=== PATIENT | female | born 2000 | race Caucasian/White ===

== ENCOUNTER 2020-03-13 00:48 | Emergency (ER) | payer SELFPAY ==
[2020-03-13 00:56] VITALS: BP 145/100; PULSE 129; RESP 18; TEMP 37.1; O2SAT 98; BMI 20.7
[2020-03-13 01:33] LABS: Basophils % 0.4 %; Eosinophils # 0.2 10^3/uL (0.0-0.8); Eosinophils % 2.5 %; Hematocrit 45.4 % (37.0-47.0); Hemoglobin 15.1 g/dL (11.5-15.3); Lymphocytes # 2.5 10^3/uL (1.5-6.5); Lymphocytes % 34.7 %; Mean Corpuscular HGB Conc 33.3 g/dL (30.0-36.0); Mean Corpuscular Hemoglobin 29.4 pg (28.0-34.0); Mean Corpuscular Volume 88.5 fL (81-99); Mean Platelet Volume 10.2 fL (7.4-10.4); Monocytes # 0.5 10^3/uL (0.2-0.9); Monocytes % 6.5 %; Neutrophils # 3.9 10^3/uL (1.8-8.0); Neutrophils % 55.8 %; Nucleated Red Blood Cells % 0 %; Platelet Count 340 10^3/cmm (130-400); Red Blood Count 5.13 10^6/uL (4.1-5.3); Red Cell Distribution Width 12.2 % (12.1-15.1); White Blood Count 7.1 10^3/uL (4.5-13.0)
[2020-03-13 01:33] LABS: Amorphous Sediment Urine 2+; Bacteria Urine 1+; Bilirubin Urine 1+ (NEGATIVE); Blood Urine Neg (Negative); Glucose Urine UA Norm (Normal); Ketones Urine Negative (Negative); Leukocyte Esterase Urine Negative (Negative); Nitrate Urine Negative (Negative); Protein Urine Neg (Negative); RBC Urine 0-4 /hpf (0-2); Squamous Epithelial Cell Urine 0-4 (0-5); Urine Appearance Cloudy (CLEAR); Urine Color Yellow (Yellow); Urobilinogen Urine 1 mg/dL (Negative); WBC Urine 0-4 /hpf (0-5); pH Urine 7 (5-7)
--- NOTE | 2020-03-13 01:39 | US_ITS ---
WS: [id number] ABDOMINAL ULTRASOUND LIMITED REASON FOR VISIT: RUQ pain TECHNIQUE: Grayscale and Doppler ultrasound examination of the abdomen. FINDINGS: Pancreas: Appears to be within normal limits. Abdominal aorta and IVC: Normal findings. Liver: Liver measures 13.9 cm in length. Normal hepatopedal flow. Gallbladder: Gallbladder wall thickness measures 0.2 mm. No stones. Right kidney: Right kidney measures 12.3 cm x 5.5 cm x 4.4 cm. No hydronephrosis or stones. US/US gall bladder [id number] IMPRESSION: Normal gallbladder and right upper quadrant ultrasound.
--- NOTE | 2020-03-13 01:40 | W.ED.ABDPA2 ---
HPI - Abdominal Pain General: Chief Complaint: Abdominal Pain Stated Complaint: ABD PAIN Time Seen by Provider: 03/13/20 01:14 Source: patient Mode of arrival: ambulatory Limitations: no limitations History of Present Illness: HPI narrative: Patient is a 19-year-old female who presents to ED today with complaints of chronic intermittent upper abdominal pains over the past year or so. Patient tells me her symptoms are progressively worsening. Patient tells me every time after eating she gets pain in her upper abdomen specifically her right upper quadrant. She often has extreme nausea and vomiting after eating. She tells me almost immediately after eating she has to run to the bathroom because she often has diarrhea. She is complaining of green-colored stools. Patient is tearful stating that it is getting harder and harder to hold anything down. Patient has been evaluated previously by her PCP as well as Dr. Juarez. She has received an EGD as well as a colonoscopy both returning completely normal. She tells me she has tried a gluten-free diet without success. Patient has an appointment with Dr. Juarez on Thursday for further evaluation. MD elicited complaint: abdominal pain Onset (ago): year(s) Pain Consistency: intermittent Location: RUQ Severity: moderate Radiation: none Migration to: no migration Exacerbating factors: eating Relieving factors: bowel movement and vomiting Associated Symptoms: Reports diarrhea, nausea, vomiting and other (reports green stools); Denies bloating, chills, coffee ground emesis, GI cramping, dysuria, fever(s), hematochezia, hematemesis, fecal incontinence, melena and syncope Review of Systems Const: Denies: fever, chills, body aches, fatigue or malaise ENMT: Denies: throat pain, enlarged tonsils or painful swallowing Card: Denies: chest pain, palpitations, irregular heart rhythm, edema, lightheadedness, syncope, pre-syncope, shortness of breath on exertion or shortness of breath when lying down Resp: Denies: shortness of breath, productive cough, non-productive cough, pain on inspiration, coughing up blood or chest congestion GI: Reports: abdominal pain, nausea, vomiting, diarrhea and other (reports green stools); Denies: vomiting blood, coffee grounds in vomit, difficulty swallowing, bloating, cramping, fecal incontinence, blood in stool, black tarry stool, white/light colored stool or fatty stool : Denies: flank pain, difficulty urinating, painful urination, urinary frequency or urinary urgency Musc: Denies: neck pain or back pain Skin/Breast: Denies: rash Neuro: Denies: headache, numbness in extremities, weakness in extremities or changes in sensation PFS ED PFSH: Social History (Updated 02/17/20 @ 13:26 by Debi Nguyen LPN) Smoking and tobacco status: never smoked Female Reproductive History: : 0 Physical Exam Const: COMMON NORMALS: no apparent distress, average body habitus, oriented x3, no limitations, healthy appearing, alert and well nourished Resp: COMMON NORMALS: normal respiratory effort and clear to auscultation bilaterally AUSCULTATION: clear to auscultation bilaterally Cardio: COMMON NORMALS: regular rate and regular rhythm RATE: regular rate RHYTHM: regular rhythm GI: COMMON NORMALS: normal to inspection, nondistended, normoactive bowel sounds, soft to palpation, no hepatosplenomegaly and no masses PALPATION: Yes soft, Yes tender Details: RUQ (no guarding) and Yes no hepatosplenomegaly : COMMON NORMALS: Yes no CVA tenderness BLADDER/KIDNEY EXAM: Yes no CVA tenderness Back/Pelvis: COMMON NORMALS: no CVA tenderness Neuro: COMMON NORMALS: oriented x3 SENSORIUM/ORIENTATION: Yes alert Skin: COMMON NORMALS: no rashes or lesions noted GENERAL SKIN EXAM: no rashes or lesions noted Course Vital Signs: Vital signs: Vital Signs Temperature 98.8 F 03/13/20 00:56 Pulse Rate 91 03/13/20 02:10 Respiratory Rate 18 03/13/20 02:10 Blood Pressure 107/63 03/13/20 02:10 Pulse Oximetry 100 03/13/20 02:10 MDM - Abdominal Pain Lab Data: Labs: Lab Results 03/13/20 03/13/20 03/13/20 Range/Units 01:12 01:12 01:12 WBC 7.1 (4.5-13.0) 10^3/ uL RBC 5.13 (4.1-5.3) 10^6/u L Hgb 15.1 (11.5-15.3) g/dL Hct 45.4 (37.0-47.0) % MCV 88.5 (81-99) fL MCH 29.4 (28.0-34.0) pg MCHC 33.3 (30.0-36.0) g/dL RDW 12.2 (12.1-15.1) % Plt Count 340 (130-400) 10^3/c mm MPV 10.2 (7.4-10.4) fL Neut % (Auto) 55.8 % Lymph % (Auto) 34.7 % [place] % (Auto) 6.5 % Eos % (Auto) 2.5 % Baso % (Auto) 0.4 % Neut # (Auto) 3.9 (1.8-8.0) 10^3/u L Lymph # (Auto) 2.5 (1.5-6.5) 10^3/u L [place] # (Auto) 0.5 (0.2-0.9) 10^3/u L Eos # (Auto) 0.2 (0.0-0.8) 10^3/u L Baso # (Auto) 0.0 (0.0-0.1) 10^3/u L Nucleated RBC % (a uto) 0 % Nucleated RBCs # 0.0 /100WBC Sodium 140 (136-145) mmol/L Potassium 3.5 (3.5-5.1) mmol/L Chloride 103 (98-107) mmol/L Carbon Dioxide 27 (22-29) mmol/L Anion Gap 13.5 (5-19) BUN 7 (6-20) mg/dL Creatinine 0.7 (0.5-0.9) mg/dL GFR Calculation 106.7 (90-130) mL/min Glucose 108 (65-115) mg/dL Calculated Osmolal ity 286 (285-295) mOsm/k g Calcium 10.1 (8.5-10.5) mg/dL Total Bilirubin 0.3 (0.15-1.2) mg/dL AST 16 (0-32) U/L ALT 10 (0-33) U/L Alkaline Phosphata se 64 (35-105) IU/L Total Protein 8.5 (6.6-8.7) g/dL Albumin 4.8 (3.5-5.2) g/dL Globulin 3.7 (1.3-4.6) g/dL Lipase 38 (13-60) U/L HCG, Qual Negative (Negative) Urine Color (Yellow) Urine Appearance (CLEAR) Urine pH (5-7) Ur Specific Gravit y (1.005-1.030) Urine Protein (Negative) Urine Glucose (UA) (Normal) Urine Ketones (Negative) Urine Blood (Negative) Urine Nitrate (Negative) Urine Bilirubin (NEGATIVE) Urine Urobilinogen (Negative) mg/dL Ur Leukocyte Ella ase (Negative) Urine RBC (0-2) /hpf Urine WBC (0-5) /hpf Ur Squamous Epith Cells (0-5) Amorphous Sediment Urine Bacteria (NONE) 03/13/20 Range/Units 01:20 WBC (4.5-13.0) 10^3/ uL RBC (4.1-5.3) 10^6/u L Hgb (11.5-15.3) g/dL Hct (37.0-47.0) % MCV (81-99) fL MCH (28.0-34.0) pg MCHC (30.0-36.0) g/dL RDW (12.1-15.1) % Plt Count (130-400) 10^3/c mm MPV (7.4-10.4) fL Neut % (Auto) % Lymph % (Auto) % [place] % (Auto) % Eos % (Auto) % Baso % (Auto) % Neut # (Auto) (1.8-8.0) 10^3/u L Lymph # (Auto) (1.5-6.5) 10^3/u L [place] # (Auto) (0.2-0.9) 10^3/u L Eos # (Auto) (0.0-0.8) 10^3/u L Baso # (Auto) (0.0-0.1) 10^3/u L Nucleated RBC % (a uto) % Nucleated RBCs # /100WBC Sodium (136-145) mmol/L Potassium (3.5-5.1) mmol/L Chloride (98-107) mmol/L Carbon Dioxide (22-29) mmol/L Anion Gap (5-19) BUN (6-20) mg/dL Creatinine (0.5-0.9) mg/dL GFR Calculation (90-130) mL/min Glucose (65-115) mg/dL Calculated Osmolal ity (285-295) mOsm/k g Calcium (8.5-10.5) mg/dL Total Bilirubin (0.15-1.2) mg/dL AST (0-32) U/L ALT (0-33) U/L Alkaline Phosphata se (35-105) IU/L Total Protein (6.6-8.7) g/dL Albumin (3.5-5.2) g/dL Globulin (1.3-4.6) g/dL Lipase (13-60) U/L HCG, Qual (Negative) Urine Color Yellow (Yellow) Urine Appearance Cloudy (CLEAR) Urine pH 7 (5-7) Ur Specific Gravit y 1.020 (1.005-1.030) Urine Protein Neg (Negative) Urine Glucose (UA) Norm (Normal) Urine Ketones Negative (Negative) Urine Blood Neg (Negative) Urine Nitrate Negative (Negative) Urine Bilirubin 1+ H (NEGATIVE) Urine Urobilinogen 1 H (Negative) mg/dL Ur Leukocyte Ella ase Negative (Negative) Urine RBC 0-4 H (0-2) /hpf Urine WBC 0-4 H (0-5) /hpf Ur Squamous Epith Cells 0-4 H (0-5) Amorphous Sediment 2+ Urine Bacteria 1+ H (NONE) Imaging Data ^: US gallbladder: 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 Juarez on Thursday as scheduled. May return to ED for worsening pain or any other concerns you may have. Coding Level of Care Code ED Fire Warden for Chg Fwd Exam Detailed
[2020-03-13 01:45] LABS: Alanine Aminotransferase 10 U/L (0-33); Albumin Level 4.8 g/dL (3.5-5.2); Alkaline Phosphatase 64 IU/L (35-105); Anion Gap 13.5 (5-19); Aspartate Amino Transferase 16 U/L (0-32); Blood Urea Nitrogen 7 mg/dL (6-20); Calcium 10.1 mg/dL (8.5-10.5); Carbon Dioxide 27 mmol/L (22-29); Chloride 103 mmol/L (98-107); Globulin 3.7 g/dL (1.3-4.6); Glomerular Filtration Rate 106.7 mL/min (90-130); Glucose 108 mg/dL (65-115); Lipase 38 U/L (13-60); Osmolality Calculated 286 mOsm/kg (285-295); Potassium 3.5 mmol/L (3.5-5.1); Sodium 140 mmol/L (136-145); Total Bilirubin 0.3 mg/dL (0.15-1.2); Total Protein 8.5 g/dL (6.6-8.7)
[2020-03-13 02:10] VITALS: BP 107/63; PULSE 91; RESP 18; O2SAT 100
[2020-03-13] MEDS: promethazine 25 mg/mL SDV 1 mL IM (02:11)
[2020-03-13 02:17] LABS: HCG, Serum Qual Negative (Negative)
[2020-03-13 03:08] VITALS: BP 107/61; PULSE 63; RESP 18; O2SAT 98
== END 2020-03-13 03:09 | disposition home or self-care (01) ==
PROVIDERS: Emergency Medicine; Emergency Provider Physician Assistant; Family Provider Internal Medicine; PCP Internal Medicine
DX: R10.9 Unspecified abdominal pain (principal)
CPT/HCPCS: 12345; 76705; 80053; 81001; 83690; 84703; 85025; 96372; 99282; 99283; J2550

== ENCOUNTER 2020-03-19 08:26 | Day surgery (SDC) | payer SELFPAY ==
[2020-03-16 18:13] VITALS: BMI 21.5
[2020-03-19] VITALS (11 sets, daily range): BP systolic 113–136; BP diastolic 68–80; PULSE 61–90; RESP 15–26; TEMP 36.1–37.1; O2SAT 94–100
--- NOTE | 2020-03-19 08:15 | W.PM.OPSUD ---
Surgery/Procedure H&P Update DATE OF PROCEDURE: March 19, 2020 DATE H&P PERFORMED: 03/16/20 H&P UPDATE INFORMATION: I have reviewed H&P completed within last 30 days, I have examined patient prior to procedure and No changes to prior documentation PLANNED PROCEDURE: Operation Date: 03/19/20 09:55 Proposed Procedures p Laparoscopic Cholecystectomy 49945 [id number] R10.11(Not Applicable) - Kimo Juarez MD s EGD(Not Applicable) - Kimo Juarez MD
[2020-03-19 08:48] LABS: OR HCG Qualitative Urine Negative (Negative)
[2020-03-19] MEDS: sodium chloride 0.9% 1,000 ML 30 ML IV (08:50)
--- NOTE | 2020-03-19 08:52 | ANES.PREANE2 ---
Pre-Anesthetic Assessment Pre-Anesthetic Assessment: Height/Weight: Height 1.75 m Weight 66.224 kg Temp Pulse Resp BP Pulse Ox 97.0 F L 90 16 129/76 97 03/19/20 08:39 03/19/20 08:39 03/19/20 08:39 03/19/20 08:39 03/19/20 08:39 Preop Diagnosis: Chronic cholecystitis Proposed Procedure: Operation Date: 03/19/20 09:55 Proposed Procedures p Laparoscopic Cholecystectomy 29988 [id number] R10.11(Not Applicable) - Kimo Juarez MD s EGD(Not Applicable) - Kimo Juarez MD Familial anesthetic complications: PONV - adding scopolamine patch Was Beta Hi taken within 24 hours: N/A Last intake: Intake Last Liquid Date 03/18/20 Last Liquid Time 22:00 Last Solid Date 03/18/20 Last Solid Time 21:30 Social: Social History: No alcohol and No tobacco Comment: Vapes Exam: Pre-Anes Outpt Exam: alert, oriented x 3, clear to auscultation bilaterally and regular rate & rhythm Airway: Cervical ROM: WNL MP: 1 Dentition: Full Pulmonary: Pulmonary: None reported CV/HEM: CV/HEM: None reported : : None reported Hepatic: Hepatic: None reported GI: GI: None reported Metabolic: Metabolic: None reported Musc/skel: Musc/skel: None reported Neuropsych: Neuropsych: None reported Anesthetic Plan: ASA status: 1 Anesthesia: General Risk of > 500 ml blood loss (7ml/kg in children): No Meds/Allergies Current Medications: Current Medications Generic Name Dose Route Start Last Admin Trade Name Freq PRN Reason Stop Dose Admin Sodium Chloride 1,000 mls @ 30 ml s/hr 03/19/20 07:30 03/19/20 08:50 Sodium Chloride 0.9% IV 03/20/20 07:29 30 mls/hr .Q24H ERNESTO Administration PFSH Anesthesia PFSH: Surgical History (Updated 03/19/20 @ 07:00 by Kimo Juarez MD) History of colonoscopy (~2018) History of esophagogastroduodenoscopy (EGD) (~2018) Social History Smoking and tobacco status: never smoked Data Anesthesia Other Labs: Laboratory Results - last 48 hr 03/19/20 08:46 Urine HCG, Qual Negative Cardiac Studies: No Data to Display
[2020-03-19] MEDS: scopolamine 1.5 Patch 1 PATCH TRANSDERMA (08:53)
--- NOTE | 2020-03-19 10:31 | PM.OP ---
Operative Report Date of procedure: March 19, 2020 Pre-op Diagnosis: Chronic cholecystitis Post-op Findings: Normal EGD Chronic cholecystitis Procedure Done: Laparoscopic cholecystectomy Pathology: Gallbladder Surgeon: Kimo Juarez Anesthesia: General Estimated blood loss (mL): 5 Condition: stable Disposition: PACU Procedure: The patient was taken to the operating room and was intubated under general anesthesia. A bite-block was placed and the gastroscope was introduced and advanced up to the second portion of the duodenum and slowly withdrawn. The first and second was in the duodenum was normal. There is mild nonerosive gastritis noted in the antrum, the fundus, body and pylorus of the stomach were normal. Z line at 40 cm. No abnormalities noted on retroflexion. The rest of the esophagus was normal and the gastroscope was withdrawn. After the antibiotic had been administered, the abdomen was prepped and draped in a sterile manner. Using a #15 blade, a 1 centimeter infraumbilical curvilinear incision was made and using an open Tasneem technique the peritoneal cavity was entered. A 10 millimeter port was placed and 15 millimeters of pneumoperitoneum was created. A 10 millimeter, 30 degrees scope was then introduced. Three 5 millimeter ports were placed in the epigastric, midclavicular and the anterior axillary line two fingerbreadths below the costal margin on the right side under the direct visualization. Ratcheted forceps were introduced into the lateral most port and was used to retract the fundus of the gallbladder cephalad and using forceps the infundibulum of the gallbladder was retracted laterally. Using L-hook cautery the peritoneum overlying the Calot's triangle was opened medially and laterally until the cystic duct and the cystic artery were skeletonized. Dissection was carried along the body of the gallbladder and after ensuring critical view of safety, 4 clips applied on the cystic duct and 3 clips applied on the cystic artery and cut leaving, 3 clips on the remaining portion of the duct and 2 clips on the remaining portion of the artery. The rest of the gallbladder was dissected off the liver using L-hook cautery. There was no bleeding or bile leaking noted from the gallbladder fossa and the clips appeared to be in place. An EndoCatch bag was introduced to remove the gallbladder. All the ports were removed under direct visualization and there was no bleeding noted from the port sites. The fascia of the umbilicus was closed using [id number] Vicryl sutures and the subcutaneous tissue was approximated using 3-0 Vicryl sutures. The skin at all four ports were closed using 4-0 Monocryl and Dermabond. A total of 10 millimeters of 0.5% Marcaine was infiltrated around the port sites. The patient was stable throughout the procedure.
--- NOTE | 2020-03-19 10:38 | SUR.PHASEI ---
1037 PATIENT TO PACU AT THIS TIME. RR EVEN AND UNLABORED. 4 INCISIONS TO ABDOMEN, CDI. PATIENT RESPONSIVE TO VERBAL STIMULI.
[2020-03-19] MEDS: fentaNYL 50 mcg/mL INJ 2mL IVP (10:43)
[2020-03-19] MEDS: metoclopramide 5 mg/mL SDV 2 mL 10 MG IVP (10:46)
[2020-03-19] MEDS: midazolam 1 mg/mL INJ 2 mL 2 MG IVP (11:04)
--- NOTE | 2020-03-19 11:08 | SUR.PHASEI ---
1101 PATIENT TO OPS AT THIS TIME FROM PACU. C/O ANXIETY. VERSED GIVEN IN OPS. PATIENT PAIN 7/10, WANTING PAIN PILL IN OPS. NAUSEA IMPROVED. TOLERATING ICE CHIPS.
[2020-03-19] MEDS: HYDROcodone-acetaminophen 5-325 mg Tablet 1 TAB PO (11:45)
== END 2020-03-19 12:29 | disposition home or self-care (01) ==
PROVIDERS: Family Provider Internal Medicine; PCP Internal Medicine; Visit Provider Surgery
PROC: 0FT44ZZ Resection of Gallbladder, Percutaneous Endoscopic Approach (ICD-10-PCS; CPT 47562; principal; 2020-03-19 09:45)
PROC: 0DJ08ZZ Inspection of Upper Intestinal Tract, Via Natural or Artificial Opening Endoscopic (ICD-10-PCS; CPT 43235; 2020-03-19 09:45)
DX: K81.1 Chronic cholecystitis (principal)
CPT/HCPCS: 47562; 12345; 43235; 84703; 88304; J0690; J2001; J2250; J2405; J2704; J2710; J2765; J3010; J3490; J7030

== ENCOUNTER 2020-05-23 18:34 | Emergency (ER) | payer SELFPAY ==
[2020-05-23 18:45] VITALS: BP 139/69; PULSE 93; RESP 18; TEMP 37.7; O2SAT 94; BMI 20.7
[2020-05-23 19:58] LABS: Basophils % 0.5 %; Eosinophils # 0.3 10^3/uL (0.0-0.8); Eosinophils % 3.9 %; Hematocrit 39.7 % (37.0-47.0); Hemoglobin 13.3 g/dL (11.5-15.3); Lymphocytes # 2.8 10^3/uL (1.5-6.5); Lymphocytes % 34.5 %; Mean Corpuscular HGB Conc 33.5 g/dL (30.0-36.0); Mean Corpuscular Hemoglobin 30.2 pg (28.0-34.0); Monocytes # 0.6 10^3/uL (0.2-0.9); Monocytes % 7.4 %; Neutrophils # 4.26 10^3/uL (1.8-8.0); Neutrophils % 53.4 %; Nucleated Red Blood Cells % 0 %; Platelet Count 295 10^3/cmm (130-400); Red Blood Count 4.41 10^6/uL (4.1-5.3); Red Cell Distribution Width 12.2 % (12.1-15.1)
[2020-05-23 20:17] LABS: Alanine Aminotransferase 11 U/L (0-33); Albumin Level 4.6 g/dL (3.5-5.2); Alkaline Phosphatase 68 IU/L (35-105); Aspartate Amino Transferase 19 U/L (0-32); Blood Urea Nitrogen 8 mg/dL (6-20); Calcium 9.6 mg/dL (8.5-10.5); Carbon Dioxide 27 mmol/L (22-29); Chloride 102 mmol/L (98-107); Globulin 2.7 g/dL (1.3-4.6); Glomerular Filtration Rate 127.5 mL/min (90-130); Glucose 102 mg/dL (65-115); Osmolality Calculated 282 mOsm/kg (285-295); Sodium 138 mmol/L (136-145); Total Bilirubin 0.3 mg/dL (0.15-1.2); Total Protein 7.3 g/dL (6.6-8.7)
--- NOTE | 2020-05-23 21:25 | W.ED.GENADLT ---
HPI - General Adult General: Chief complaint: General Medical Stated complaint: bloody stool Time Seen by Provider: 05/23/20 21:12 History of Present Illness: HPI narrative: Patient is a 19-year-old female comes to the ED with blood in stool. Patient has chronic history of red blood in the stool and has had upper GI scope and colonoscopy performed approximately a year ago due to same complaint and results showed no acute findings. Patient recently had her gallbladder removed on March 19. patient says symptoms of blood in stool started today. She is also having some mild lower abdominal pain and lumbar back pain that started 2 days ago. Denies any nausea/vomiting, vaginal discharge, vaginal bleeding, genital lesions, dysuria, hematuria, diarrhea or constipation. Associated symptoms: Deny chest pain, dyspnea, headache(s), nausea, rash, palpitations or vomiting Review of Systems Const: Denies: fever(s), chills or fatigue Eyes: Denies: change in vision or eye discomfort ENMT: Denies: throat pain, odynophagia, nasal discharge or nasal congestion Card: Denies: chest pain, palpitations, edema, swelling of feet/ankles, dyspnea on exertion or orthopnea Resp: Denies: dyspnea, productive cough or non-productive cough GI: Reports: hematochezia; Denies: abdominal pain, nausea, vomiting, diarrhea or constipation : Denies: flank pain, dysuria or hematuria Musc: Reports: back pain (mild muscular lumbar back pain-pt is a [employer]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[employer]NA[employer] 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.); Denies: neck pain or extremity swelling Skin/Breast: Denies: rash or new lesions Neuro: Denies: headache(s), numbness in extremities or weakness in extremities PFS ED PFSH: Surgical History History of colonoscopy (~2019) History of esophagogastroduodenoscopy (EGD) (03/19/20) Status post laparoscopic cholecystectomy (03/19/20) Family History Denies family history of Anesthesia complication Bleeding disorder Social History Smoking and tobacco status: never smoked Alcohol intake: never History of recent travel: No Physical Exam Const: COMMON NORMALS: no acute distress, patient oriented x3 and alert GENERAL APPEARANCE: cooperative and comfortable HENMT: COMMON NORMALS: normocephalic HEAD & SCALP: normocephalic MOUTH: Normal oral and palatal mucosa present THROAT: posterior oropharynx normal and uvula midline Eye: COMMON NORMALS: Equal, round and reactive pupils present PUPIL: Yes Equal, round and reactive pupils present Neck/C-Spine: COMMON NORMALS: supple GENERAL: Yes normal visual inspection Resp: COMMON NORMALS: normal respiratory effort, No retractions, No use of accessory muscles and clear to auscultation bilaterally AUSCULTATION: clear to auscultation bilaterally Cardio: COMMON NORMALS: regular rate, regular rhythm, S1 normal heart sound present, S2 normal heart sound present, No gallops present (Cardio), No clicks present (Cardio), No murmurs present (Cardio) and Peripheral pulses 2+ throughout RATE: regular rate RHYTHM: regular rhythm HEART SOUNDS: S1 normal heart sound present and S2 normal heart sound present PERIPHERAL PULSES: Peripheral pulses 2+ throughout GI: COMMON NORMALS: Normal to inspection, nondistended, normoactive bowel sounds present, Soft to palpation, non-tender and no masses PALPATION: Yes Soft to palpation RECTAL EXAM: visual inspection normal, normal sphincter tone, No External hemorrhoid(s) present, No Internal hemorrhoid(s) present and heme negative stool : COMMON NORMALS: Yes no CVA tenderness BLADDER/KIDNEY EXAM: Yes no CVA tenderness Back/Pelvis: COMMON NORMALS: no CVA tenderness LUMBAR SPINE/LOWER BACK: Yes paraspinal muscle tenderness Lumbar paraspinal muscle tenderness: bilateral Extremity: COMMON NORMALS: normal to inspection and no pedal edema Neuro: COMMON NORMALS: patient oriented x3 and moves all extremities SENSORIUM/ORIENTATION: Yes alert Skin: COMMON NORMALS: no rashes or lesions noted GENERAL SKIN EXAM: no rashes or lesions noted and dry skin Procedures Stool Hemoccult Procedural Steps Taken: stool placed in appropriate test area, developer placed on stool and control areas and controls appropriately positive and negative Hemoccult result: negative Additional Comments: Digital rectal exam was performed. Course Vital Signs: Vital signs: Vital Signs Temperature 99.9 F H 05/23/20 18:45 Pulse Rate 84 05/23/20 22:07 Respiratory Rate 16 05/23/20 22:07 Blood Pressure 142/93 05/23/20 22:07 Pulse Oximetry 98 07/15/20 22:07 MDM - General Adult MDM Narrative: Medical decision making narrative: Patient is a 19-year-old female comes to the ED with small amount of red blood in stool that started today. Patient has a chronic history of red blood in stool she describes that it has been going on for years now and it comes and goes. She has had an upper GI and a colonoscopy performed in the last year and no acute findings were seen. Patient appears healthy and well and in no signs of distress or pain. Abdominal exam was unremarkable and patient had no tenderness. Digital rectal exam was performed with a female nurse in the room and no hemorrhoids were palpated. No visible blood seen and stool Hemoccult test negative. CBC (hemoglobin 13.3) and CMP were unremarkable. hCG was negative. CT of the abdomen was performed and showed no acute findings. Patient was diagnosed with hematochezia and discharged and told to follow-up with PCP in 7 to 10 days. Patient to return to ED for reevaluation if symptoms worsen. Patient understood and agreed with plan. Lab Data: Attestation: I reviewed the patient's lab results. Labs: Lab Results 05/23/20 05/23/20 05/23/20 Range/Units 19:40 19:40 19:40 WBC 8.0 (4.5-13.0) 10^3/ uL RBC 4.41 (4.1-5.3) 10^6/u L Hgb 13.3 (11.5-15.3) g/dL Hct 39.7 (37.0-47.0) % MCV 90.0 (81-99) fL MCH 30.2 (28.0-34.0) pg MCHC 33.5 (30.0-36.0) g/dL RDW 12.2 (12.1-15.1) % Plt Count 295 (130-400) 10^3/c mm MPV 10.0 (7.4-10.4) fL Neut % (Auto) 53.4 % Lymph % (Auto) 34.5 % [place] % (Auto) 7.4 % Eos % (Auto) 3.9 % Baso % (Auto) 0.5 % Neut # (Auto) 4.26 (1.8-8.0) 10^3/u L Lymph # (Auto) 2.8 (1.5-6.5) 10^3/u L [place] # (Auto) 0.6 (0.2-0.9) 10^3/u L Eos # (Auto) 0.3 (0.0-0.8) 10^3/u L Baso # (Auto) 0.0 (0.0-0.1) 10^3/u L Nucleated RBC % (a uto) 0 % Nucleated RBCs # 0.0 /100WBC Sodium 138 (136-145) mmol/L Potassium 4.0 (3.5-5.1) mmol/L Chloride 102 (98-107) mmol/L Carbon Dioxide 27 (22-29) mmol/L Anion Gap 13.0 (5-19) BUN 8 (6-20) mg/dL Creatinine 0.6 (0.5-0.9) mg/dL GFR Calculation 127.5 (90-130) mL/min Glucose 102 (65-115) mg/dL Calculated Osmolal ity 282 L (285-295) mOsm/k g Calcium 9.6 (8.5-10.5) mg/dL Total Bilirubin 0.3 (0.15-1.2) mg/dL AST 19 (0-32) U/L ALT 11 (0-33) U/L Alkaline Phosphata se 68 (35-105) IU/L Total Protein 7.3 (6.6-8.7) g/dL Albumin 4.6 (3.5-5.2) g/dL Globulin 2.7 (1.3-4.6) g/dL HCG, Qual Negative (Negative) Imaging Data^: CT Abd/Pel: Attestation: I personally reviewed and interpreted this imaging study as follows: Radiologist's impression: [address] [address] [address] Scan Report Signed with Addenda Patient: Gay Del Cid Unit #: [id number] : 2000 Age/Sex: 19 / F ADM Date: 05/23/20 Loc: ER Room/Bed: Attending Dr: Ordering Provider/Ordering MD: Uri Parnell Date of Service: 05/23/20 Procedure(s): CT abdomen pelvis w con* [id number] Accession Number(s): [id number] Report Number: [id number]/CT abdomen pelvis w con* [id number] THIS REPORT CONTAINS FINDINGS THAT MAY BE CRITICAL TO PATIENT CARE. The findings were verbally communicated via telephone conference with Uri Parnell at 12:55 AM CDT on 05/24/2020. The findings were acknowledged and understood. Radiation Dose CTDIVOL = (mGy): DLP = 662.64 (mGy-cm) Addendum Dictated By: Sung Castellano Addendum Signed By: Sung Castellano Signed Date/Time: 05/24/20 005 6 Addendum Cosigned By: PROCEDURE INFORMATION: Exam: CT Abdomen And Pelvis With Contrast Exam date and time: 05/23/2020 11:09 PM Age: 19 years old Clinical indication: Abdominal pain; Generalized; Prior surgery; Surgery type: Cholecystectomy; Additional info: Lower abdominal pain with red blood in stool TECHNIQUE: Imaging protocol: Computed tomography of the abdomen and pelvis with intravenous contrast. Radiation optimization: All CT scans at this facility use at least one of these dose optimization techniques: automated exposure control; mA and/or kV adjustment per patient size (includes targeted exams where dose is matched to clinical indication); or iterative reconstruction. Contrast material: [id number]; Contrast volume: 95 ml; Contrast route: INTRAVENOUS (IV); COMPARISON: US gall bladder [id number] 03/13/2020 2:24 AM RADIATION DOSE METRICS: Total DLP (mGy-cm): 662.64 FINDINGS: Lungs: Limited assessment lung bases without visible evidence of active cardiopulmonary process. Liver: Unremarkable. No mass. Gallbladder and bile ducts: Status post cholecystectomy. No visible intra or extrahepatic biliary ectasia. Pancreas: Normal. No ductal dilation. Spleen: Normal. No splenomegaly. Adrenals: Normal. No mass. Kidneys and ureters: Normal. No hydronephrosis. Stomach and bowel: Nonobstructive bowel pattern. No visible adynamic or reactive ileus. No sentinel clot or other definitive evidence of active GI hemorrhage. Appendix: The appendix is visualized and is noninflamed. Intraperitoneal space: Unremarkable. No free air. No significant fluid collection. Vasculature: Unremarkable. No abdominal aortic aneurysm. Lymph nodes: Unremarkable. No enlarged lymph nodes. Bladder: Unremarkable as visualized. Reproductive: Suspected diaphragm within the vaginal vault. Bones/joints: Unremarkable. No visible active osseous pathology. Soft tissues: Unremarkable. CT/CT abdomen pelvis w con* [id number] IMPRESSION: No visible evidence of active or acute abdominal or pelvic pathologic process. Radiation Dose CTDIVOL = (mGy): DLP = 662.64 (mGy-cm) Dictated By: Sung Castellano Signed By: Sung Castellano Signed Date/Time: 05/24/2055 DD/ Discharge Plan Discharge Patient Disposition: Home, Self-Care Clinical Impression: Hematochezia Condition: Stable Prescriptions: No Action etonogestrel-ethinyl estradiol [NuvaRing] 0.12-0.015 mg/24 hr ring 1 vag ring VAGINAL Q21D RF: 0 cetirizine 10 mg Tablet 10 mg PO DAILY PRN (Reason: allergies) RF: 0 Tylenol Extra Strength 500 mg Tablet 1,000 mg PO PRN PRN (Reason: Pain) RF: 0 sertraline 50 mg tablet 50 mg PO DAILY RF: 0 Discharge Orders: Discharge Order (Routine); Ordered 05/24/20 Ordered By: Uri Parnell Referrals: Jeannie Valladares MD [Primary Care Provider] - Discharge Diet: Regular Discharge Activity: Resume usual activity Activity Restrictions/Additional Instructions: Follow-up with medical provider as directed. Continue taking all home meds as previously prescribed. Return to the ER or your medical provider if condition worsens. Please read and understand discharge instructions. If any questions, please ask. Coding Level of Care Code [facility] for [facility] Fwd Exam Comprehensive
[2020-05-23 22:07] VITALS: BP 142/93; PULSE 84; RESP 16; O2SAT 98
--- NOTE | 2020-05-23 22:56 | CTR_ITS ---
PROCEDURE INFORMATION: Exam: CT Abdomen And Pelvis With Contrast Exam date and time: 05/23/2020 11:09 PM Age: 19 years old Clinical indication: Abdominal pain; Generalized; Prior surgery; Surgery type: Cholecystectomy; Additional info: Lower abdominal pain with red blood in stool TECHNIQUE: Imaging protocol: Computed tomography of the abdomen and pelvis with intravenous contrast. Radiation optimization: All CT scans at this facility use at least one of these dose optimization techniques: automated exposure control; mA and/or kV adjustment per patient size (includes targeted exams where dose is matched to clinical indication); or iterative reconstruction. Contrast material: [id number]; Contrast volume: 95 ml; Contrast route: INTRAVENOUS (IV); COMPARISON: US gall bladder [id number] 03/13/2020 2:24 AM RADIATION DOSE METRICS: Total DLP (mGy-cm): 662.64 FINDINGS: Lungs: Limited assessment lung bases without visible evidence of active cardiopulmonary process. Liver: Unremarkable. No mass. Gallbladder and bile ducts: Status post cholecystectomy. No visible intra or extrahepatic biliary ectasia. Pancreas: Normal. No ductal dilation. Spleen: Normal. No splenomegaly. Adrenals: Normal. No mass. Kidneys and ureters: Normal. No hydronephrosis. Stomach and bowel: Nonobstructive bowel pattern. No visible adynamic or reactive ileus. No sentinel clot or other definitive evidence of active GI hemorrhage. Appendix: The appendix is visualized and is noninflamed. Intraperitoneal space: Unremarkable. No free air. No significant fluid collection. Vasculature: Unremarkable. No abdominal aortic aneurysm. Lymph nodes: Unremarkable. No enlarged lymph nodes. Bladder: Unremarkable as visualized. Reproductive: Suspected diaphragm within the vaginal vault. Bones/joints: Unremarkable. No visible active osseous pathology. Soft tissues: Unremarkable. CT/CT abdomen pelvis w con* [id number] IMPRESSION: No visible evidence of active or acute abdominal or pelvic pathologic process. Radiation Dose CTDIVOL = (mGy): DLP = 662.64 (mGy-cm)
--- NOTE | 2020-05-23 23:14 | PC.NURSE ---
report given to rick syed assumed care.
[2020-05-23 23:40] LABS: HCG, Serum Qual Negative (Negative)
[2020-05-23] MEDS: sodium chloride 0.9% 1,000 ML 999 ML IV (23:59)
[2020-05-24] MEDS: iohexol 300 mg/mL 100 mL Btl IV (00:08)
[2020-05-24 01:08] VITALS: BP 112/63; PULSE 83; RESP 16; TEMP 36.7; O2SAT 98
== END 2020-05-24 01:13 | disposition home or self-care (01) ==
PROVIDERS: Emergency Medicine; Emergency Provider Physician Assistant; PCP Internal Medicine
DX: K92.1 Melena (principal)
CPT/HCPCS: 12345; 36415; 74177; 80053; 82272; 84703; 85025; 96360; 99282; 99283; J7030; Q9967

== ENCOUNTER → 2020-06-25 15:26 | Outpatient (BNVA) | payer OTHER, SELFPAY | PROVIDERS: PCP Internal Medicine; Visit Provider Nurse Practitioner | DX: R21 Rash and other nonspecific skin eruption (principal) | CPT/HCPCS: 87071; 87880 ==

== ENCOUNTER 2020-07-27 04:34 | Observation (INO) | payer OTHER, SELFPAY ==
[2020-07-27] VITALS (11 sets, daily range): BP systolic 106–139; BP diastolic 63–96; PULSE 62–102; RESP 16–28; TEMP 36.5–37; O2SAT 95–100; BMI 22.0
--- NOTE | 2020-07-27 04:50 | CTR_ITS ---
PROCEDURE INFORMATION: Exam: CT Abdomen And Pelvis With Contrast Exam date and time: 07/27/2020 4:57 AM Age: 19 years old Clinical indication: Abdominal pain; Generalized; Prior surgery; Surgery type: Cholecystectomy; Additional info: Abd pain TECHNIQUE: Imaging protocol: Computed tomography of the abdomen and pelvis with intravenous contrast. Radiation optimization: All CT scans at this facility use at least one of these dose optimization techniques: automated exposure control; mA and/or kV adjustment per patient size (includes targeted exams where dose is matched to clinical indication); or iterative reconstruction. Contrast material: OMNI 300; Contrast volume: 95 ml; Contrast route: INTRAVENOUS (IV); COMPARISON: CT abdomen pelvis w con* [id number] 05/24/2020 12:01 AM RADIATION DOSE METRICS: Total DLP (mGy-cm): 449.84 FINDINGS: Liver: Hypoattenuation seen adjacent to the falciform fissure compatible with focal fatty infiltration. Gallbladder and bile ducts: Status post cholecystectomy. Pancreas: Normal. No ductal dilation. Spleen: Normal. No splenomegaly. Adrenals: Normal. No mass. Kidneys and ureters: Normal. No hydronephrosis. Stomach and bowel: There are nondilated loops of small bowel containing some fluid and a few air-fluid levels, findings could represent mild ileus. Appendix: The appendix is visualized and is normal in configuration. Intraperitoneal space: Unremarkable. No free air. No significant fluid collection. Vasculature: Unremarkable. No abdominal aortic aneurysm. Lymph nodes: Unremarkable. No enlarged lymph nodes. Bladder: Unremarkable as visualized. Reproductive: Unremarkable as visualized. Bones/joints: Unremarkable. No acute fracture. Soft tissues: There is an endovaginal diaphragm present. CT/CT abdomen pelvis w con* [id number] IMPRESSION: There are few nondilated loops of small bowel present containing some fluid and a few air-fluid levels, findings that could represent mild ileus. Radiation Dose CTDIVOL = (mGy): DLP = 449.84 (mGy-cm)
--- NOTE | 2020-07-27 04:51 | ED_ITS ---
Documented by User: Warren Boyer MD 07/27/20 05:40 HPI - Abdominal Pain General: Chief Complaint: Abdominal Pain Stated Complaint: abd pain/ said feels like its on fire Time Seen by Provider: 07/27/20 04:41 Source: patient Mode of arrival: ambulatory Limitations: no limitations History of Present Illness: HPI narrative: 19-year-old female states she is had is had intermittent abdominal pains for months. She had a cholecystectomy back in January. She states she started having severe pain tonight. She states her pain is currently a 9 out of 10. She denies any vomiting. Denies any worsening improving factors. States her pain is a burning pain in her lower mid abdomen and right lower quadrant. MD elicited complaint: abdominal pain Pertinent past history: none Associated Symptoms: Denies chills, dysuria and fever(s) Review of Systems Const: Denies: fever(s), chills, body aches or change in appetite Eyes: Denies: blurry vision or eye discomfort ENMT: Denies: throat pain or dental pain Card: Denies: chest pain Resp: Denies: dyspnea GI: Reports: abdominal pain : Denies: dysuria Musc: Denies: neck pain or back pain Skin/Breast: Denies: rash Neuro: Denies: headache(s) Psych: Denies: depression Miguel/Lymph: Denies: easy bruising All/Imm: Denies: urticaria PFSH ED PFSH: Medical History (Updated 07/29/20 @ 12:48 by Holland Solorzano MD) C. difficile diarrhea Depression Surgical History (Updated 07/27/20 @ 13:07 by Tricia Gomez DO) History of colonoscopy (~2018) History of esophagogastroduodenoscopy (EGD) (03/19/20) History of tonsillectomy Status post laparoscopic cholecystectomy (03/19/20) Family History Denies family history of Anesthesia complication Bleeding disorder Social History (Updated 07/27/20 @ 13:08 by Tricia Gomez DO) Smoking and tobacco status: current some day smoker e-cigarettes E-Cigarette Details: vaporizer device Alcohol intake: never Adopted: Yes Current occupational status: employed History of recent travel: No Sexually active: Yes Physical Exam Const: COMMON NORMALS: no acute distress, patient oriented x3 and healthy appearing HENMT: COMMON NORMALS: normocephalic and atraumatic HEAD & SCALP: normocephalic and atraumatic Eye: COMMON NORMALS: Equal, round and reactive pupils present and EOMs intact bilaterally PUPIL: Yes Equal, round and reactive pupils present Neck/C-Spine: COMMON NORMALS: full ROM and supple Chest: COMMONS NORMALS: normal inspection of the chest and normal palpation of entire chest wall Resp: COMMON NORMALS: normal respiratory effort, No retractions, No use of accessory muscles and clear to auscultation bilaterally AUSCULTATION: clear to auscultation bilaterally Cardio: COMMON NORMALS: regular rate, regular rhythm and No murmurs present (Cardio) RATE: regular rate RHYTHM: regular rhythm GI: COMMON NORMALS: Normal to inspection, nondistended, normoactive bowel sounds present, Soft to palpation, non-tender and no masses PALPATION: Yes Soft to palpation and Yes Tenderness to palpation present (GI) Details: RLQ Extremity: COMMON NORMALS: normal to inspection and full ROM Neuro: COMMON NORMALS: patient oriented x3, moves all extremities and no focal motor deficits Psych: COMMON NORMALS: mental status grossly normal, Normal thought process p resent and cooperative THOUGHT PROCESS: Normal thought process present Skin: COMMON NORMALS: no rashes or lesions noted and no wounds GENERAL SKIN EXAM: no rashes or lesions noted Course Vital Signs: Vital signs: Vital Signs Temperature 98.8 F 07/29/20 14:41 Pulse Rate 79 07/29/20 14:41 Respiratory Rate 18 07/29/20 14:41 Blood Pressure 110/66 07/29/20 14:41 Pulse Oximetry 98 07/29/20 14:41 MDM - Abdominal Pain MDM Narrative: Medical decision making narrative: Patient presents here with abdominal pain. Patient pain is been severe here. Initial white count is normal and patient is pending CT scan. She has had chronic abdominal pain. Patient's care turned over to Dr. Nolan to follow CT scan. Lab Data: Labs: Lab Results 07/27/20 07/27/20 07/27/20 Range/Units 04:50 04:50 04:54 WBC 7.6 (4.5-13.0) 10^3/ uL RBC 4.65 (4.1-5.3) 10^6/u L Hgb 13.7 (11.5-15.3) g/dL Hct 41.6 (37.0-47.0) % MCV 89.5 (81-99) fL MCH 29.5 (28.0-34.0) pg MCHC 32.9 (30.0-36.0) g/dL RDW 12.1 (12.1-15.1) % Plt Count 315 (130-400) 10^3/c mm MPV 10.6 H (7.4-10.4) fL Neut % (Auto) 45.9 % Lymph % (Auto) 43.5 % [place] % (Auto) 7.0 % Eos % (Auto) 2.8 % Baso % (Auto) 0.5 % Neut # (Auto) 3.48 (1.8-8.0) 10^3/u L Lymph # (Auto) 3.3 (1.5-6.5) 10^3/u L [place] # (Auto) 0.5 (0.2-0.9) 10^3/u L Eos # (Auto) 0.2 (0.0-0.8) 10^3/u L Baso # (Auto) 0.0 (0.0-0.1) 10^3/u L Nucleated RBC % (a uto) 0 % Nucleated RBCs # 0.0 /100WBC Sodium (136-145) mmol/L Potassium (3.5-5.1) mmol/L Chloride (98-107) mmol/L Carbon Dioxide (22-29) mmol/L Anion Gap (5-19) BUN (6-20) mg/dL Creatinine (0.5-0.9) mg/dL GFR Calculation (90-130) mL/min Glucose (65-115) mg/dL Calculated Osmolal ity (285-295) mOsm/k g Calcium (8.5-10.5) mg/dL Total Bilirubin (0.15-1.2) mg/dL AST (0-32) U/L ALT (0-33) U/L Alkaline Phosphata se (35-105) IU/L Total Protein (6.6-8.7) g/dL Albumin (3.5-5.2) g/dL Globulin (1.3-4.6) g/dL Lipase (13-60) U/L TSH (0.27-4.20) uIU/ mL HCG, Qual (Negative) Urine Color Yellow (Yellow) Urine Appearance Clear (CLEAR) Urine pH 6 (5-7) Ur Specific Gravit y 1.020 (1.005-1.030) Urine Protein Neg (Negative) Urine Glucose (UA) Norm (Normal) Urine Ketones Negative (Negative) Urine Blood Neg (Negative) Urine Nitrate Negative (Negative) Urine Bilirubin Neg (Negative) Urine Urobilinogen Norm (Negative) mg/dL Ur Leukocyte Ella ase Negative (Negative) Urine Opiates Scre en Negative (Negative) ng/mL Ur Barbiturates Sc reen Negative (Negative) ng/mL Ur Phencyclidine S crn Negative (Negative) ng/mL Ur Amphetamines Sc reen Negative (Negative) ng/mL U Benzodiazepines Scrn Negative (Negative) ng/mL Urine Cocaine Scre en Negative (Negative) ng/mL U Marijuana (THC) Screen Negative (Negative) ng/mL 07/27/20 07/27/20 07/27/20 Range/Units 04:54 04:54 04:54 WBC (4.5-13.0) 10^3/ uL RBC (4.1-5.3) 10^6/u L Hgb (11.5-15.3) g/dL Hct (37.0-47.0) % MCV (81-99) fL MCH (28.0-34.0) pg MCHC (30.0-36.0) g/dL RDW (12.1-15.1) % Plt Count (130-400) 10^3/c mm MPV (7.4-10.4) fL Neut % (Auto) % Lymph % (Auto) % [place] % (Auto) % Eos % (Auto) % Baso % (Auto) % Neut # (Auto) (1.8-8.0) 10^3/u L Lymph # (Auto) (1.5-6.5) 10^3/u L [place] # (Auto) (0.2-0.9) 10^3/u L Eos # (Auto) (0.0-0.8) 10^3/u L Baso # (Auto) (0.0-0.1) 10^3/u L Nucleated RBC % (a uto) % Nucleated RBCs # /100WBC Sodium 139 (136-145) mmol/L Potassium 4.0 (3.5-5.1) mmol/L Chloride 106 (98-107) mmol/L Carbon Dioxide 24 (22-29) mmol/L Anion Gap 13.0 (5-19) BUN 7 (6-20) mg/dL Creatinine 0.6 (0.5-0.9) mg/dL GFR Calculation 127.5 (90-130) mL/min Glucose 103 (65-115) mg/dL Calculated Osmolal ity 286 (285-295) mOsm/k g Calcium 9.0 (8.5-10.5) mg/dL Total Bilirubin 0.4 (0.15-1.2) mg/dL AST 16 (0-32) U/L ALT 9 (0-33) U/L Alkaline Phosphata se 59 (35-105) IU/L Total Protein 7.7 (6.6-8.7) g/dL Albumin 4.2 (3.5-5.2) g/dL Globulin 3.5 (1.3-4.6) g/dL Lipase 37 (13-60) U/L TSH 2.03 (0.27-4.20) uIU/ mL HCG, Qual Negative (Negative) Urine Color (Yellow) Urine Appearance (CLEAR) Urine pH (5-7) Ur Specific Gravit y (1.005-1.030) Urine Protein (Negative) Urine Glucose (UA) (Normal) Urine Ketones (Negative) Urine Blood (Negative) Urine Nitrate (Negative) Urine Bilirubin (Negative) Urine Urobilinogen (Negative) mg/dL Ur Leukocyte Ella ase (Negative) Urine Opiates Scre en (Negative) ng/mL Ur Barbiturates Sc reen (Negative) ng/mL Ur Phencyclidine S crn (Negative) ng/mL Ur Amphetamines Sc reen (Negative) ng/mL U Benzodiazepines Scrn (Negative) ng/mL Urine Cocaine Scre en (Negative) ng/mL U Marijuana (THC) Screen (Negative) ng/mL Discharge Plan Discharge Patient Disposition: Placed in Observation Admit Provider: Tricia Gomez Clinical Impression: Abdominal pain Qualifiers: Abdominal location: generalized Qualified Code(s): R10.84 - Generalized abdominal pain Condition: Stable Referrals: Jeannie Valladares MD [Primary Care Provider] - 2 weeks (Please call Dr Valladares's office and make an appointment within 2 weeks for a hospital follow up. [phone]) Aimee Ruby MD [Physician] - 1 month ([facility] for an appointment in one month. If you don't hear from them, please call [phone]) Discharge Diet: Advance as tolerated, Usual diet and GI Soft Discharge Activity: Resume usual activity Patient Instructions: Clostridium Difficile, Famotidine (By mouth), Sucralfate (By mouth), Vancomycin (By mouth), Depression (DC), Abdominal Pain (ED) Additional Instructions: Please take vancomycin orally for next 2 weeks for colitis. Please follow-up with your primary care provider within next 2 weeks to 3 weeks. Please follow-up with Dr. Iglesias in from [facility] within next 1 month. Discharge Date/Time: 07/27/20 09:19 Coding Level of Care Code ED Superannuation Funds Manager for Chg Fwd Exam Comprehensive Documented by User: Mary Nolan MD 07/30/20 12:24 HPI - Abdominal Pain General: Chief Complaint: Abdominal Pain Stated Complaint: abd pain/ said feels like its on fire Time Seen by Provider: 07/27/20 04:41 [facility] ED PFS: Medical History (Updated 07/29/20 @ 12:48 by Holland Solorzano MD) C. difficile diarrhea Depression Surgical History (Updated 07/27/20 @ 13:07 by Tricia Gomez DO) History of colonoscopy (~2018) History of esophagogastroduodenoscopy (EGD) (03/19/20) History of tonsillectomy Status post laparoscopic cholecystectomy (03/19/20) Family History Denies family history of Anesthesia complication Bleeding disorder Social History (Updated 07/27/20 @ 13:08 by Tricia Gomez DO) Smoking and tobacco status: current some day smoker e-cigarettes E-Cigarette Details: vaporizer device Alcohol intake: never Adopted: Yes Current occupational status: employed History of recent travel: No Sexually active: Yes Course ED course: Patient continued to have severe pain and nausea. She attempted a p.o. challenge but had return of pain and nausea. Admit her for further evaluation of her ongoing pain as she is extremely uncomfortable and does not seem to be able to go home. Additionally she told me she thought she might of had an exposure to C. difficile at work and was wondering if that might be related. I passed that on to the admitting physician. Vital Signs: Vital signs: Vital Signs Temperature 98.8 F 07/29/20 14:41 Pulse Rate 79 07/29/20 14:41 Respiratory Rate 18 07/29/20 14:41 Blood Pressure 110/66 07/29/20 14:41 Pulse Oximetry 98 07/29/20 14:41 MDM - Abdominal Pain Lab Data: Labs: Lab Results 07/27/20 07/27/20 07/27/20 Range/Units 04:50 04:50 04:54 WBC 7.6 (4.5-13.0) 10^3/ uL RBC 4.65 (4.1-5.3) 10^6/u L Hgb 13.7 (11.5-15.3) g/dL Hct 41.6 (37.0-47.0) % MCV 89.5 (81-99) fL MCH 29.5 (28.0-34.0) pg MCHC 32.9 (30.0-36.0) g/dL RDW 12.1 (12.1-15.1) % Plt Count 315 (130-400) 10^3/c mm MPV 10.6 H (7.4-10.4) fL Neut % (Auto) 45.9 % Lymph % (Auto) 43.5 % [place] % (Auto) 7.0 % Eos % (Auto) 2.8 % Baso % (Auto) 0.5 % Neut # (Auto) 3.48 (1.8-8.0) 10^3/u L Lymph # (Auto) 3.3 (1.5-6.5) 10^3/u L [place] # (Auto) 0.5 (0.2-0.9) 10^3/u L Eos # (Auto) 0.2 (0.0-0.8) 10^3/u L Baso # (Auto) 0.0 (0.0-0.1) 10^3/u L Nucleated RBC % (a uto) 0 % Nucleated RBCs # 0.0 /100WBC Sodium (136-145) mmol/L Potassium (3.5-5.1) mmol/L Chloride (98-107) mmol/L Carbon Dioxide (22-29) mmol/L Anion Gap (5-19) BUN (6-20) mg/dL Creatinine (0.5-0.9) mg/dL GFR Calculation (90-130) mL/min Glucose (65-115) mg/dL Calculated Osmolal ity (285-295) mOsm/k g Calcium (8.5-10.5) mg/dL Total Bilirubin (0.15-1.2) mg/dL AST (0-32) U/L ALT (0-33) U/L Alkaline Phosphata se (35-105) IU/L Total Protein (6.6-8.7) g/dL Albumin (3.5-5.2) g/dL Globulin (1.3-4.6) g/dL Lipase (13-60) U/L TSH (0.27-4.20) uIU/ mL HCG, Qual (Negative) Urine Color Yellow (Yellow) Urine Appearance Clear (CLEAR) Urine pH 6 (5-7) Ur Specific Gravit y 1.020 (1.005-1.030) Urine Protein Neg (Negative) Urine Glucose (UA) Norm (Normal) Urine Ketones Negative (Negative) Urine Blood Neg (Negative) Urine Nitrate Negative (Negative) Urine Bilirubin Neg (Negative) Urine Urobilinogen Norm (Negative) mg/dL Ur Leukocyte Ella ase Negative (Negative) Urine Opiates Scre en Negative (Negative) ng/mL Ur Barbiturates Sc reen Negative (Negative) ng/mL Ur Phencyclidine S crn Negative (Negative) ng/mL Ur Amphetamines Sc reen Negative (Negative) ng/mL U Benzodiazepines Scrn Negative (Negative) ng/mL Urine Cocaine Scre en Negative (Negative) ng/mL U Marijuana (THC) Screen Negative (Negative) ng/mL 07/27/20 07/27/20 07/27/20 Range/Units 04:54 04:54 04:54 WBC (4.5-13.0) 10^3/ uL RBC (4.1-5.3) 10^6/u L Hgb (11.5-15.3) g/dL Hct (37.0-47.0) % MCV (81-99) fL MCH (28.0-34.0) pg MCHC (30.0-36.0) g/dL RDW (12.1-15.1) % Plt Count (130-400) 10^3/c mm MPV (7.4-10.4) fL Neut % (Auto) % Lymph % (Auto) % [place] % (Auto) % Eos % (Auto) % Baso % (Auto) % Neut # (Auto) (1.8-8.0) 10^3/u L Lymph # (Auto) (1.5-6.5) 10^3/u L [place] # (Auto) (0.2-0.9) 10^3/u L Eos # (Auto) (0.0-0.8) 10^3/u L Baso # (Auto) (0.0-0.1) 10^3/u L Nucleated RBC % (a uto) % Nucleated RBCs # /100WBC Sodium 139 (136-145) mmol/L Potassium 4.0 (3.5-5.1) mmol/L Chloride 106 (98-107) mmol/L Carbon Dioxide 24 (22-29) mmol/L Anion Gap 13.0 (5-19) BUN 7 (6-20) mg/dL Creatinine 0.6 (0.5-0.9) mg/dL GFR Calculation 127.5 (90-130) mL/min Glucose 103 (65-115) mg/dL Calculated Osmolal ity 286 (285-295) mOsm/k g Calcium 9.0 (8.5-10.5) mg/dL Total Bilirubin 0.4 (0.15-1.2) mg/dL AST 16 (0-32) U/L ALT 9 (0-33) U/L Alkaline Phosphata se 59 (35-105) IU/L Total Protein 7.7 (6.6-8.7) g/dL Albumin 4.2 (3.5-5.2) g/dL Globulin 3.5 (1.3-4.6) g/dL Lipase 37 (13-60) U/L TSH 2.03 (0.27-4.20) uIU/ mL HCG, Qual Negative (Negative) Urine Color (Yellow) Urine Appearance (CLEAR) Urine pH (5-7) Ur Specific Gravit y (1.005-1.030) Urine Protein (Negative) Urine Glucose (UA) (Normal) Urine Ketones (Negative) Urine Blood (Negative) Urine Nitrate (Negative) Urine Bilirubin (Negative) Urine Urobilinogen (Negative) mg/dL Ur Leukocyte Ella ase (Negative) Urine Opiates Scre en (Negative) ng/mL Ur Barbiturates Sc reen (Negative) ng/mL Ur Phencyclidine S crn (Negative) ng/mL Ur Amphetamines Sc reen (Negative) ng/mL U Benzodiazepines Scrn (Negative) ng/mL Urine Cocaine Scre en (Negative) ng/mL U Marijuana (THC) Screen (Negative) ng/mL Discharge Plan Discharge Patient Disposition: Placed in Observation Admit Provider: Tricia Gomez Clinical Impression: Abdominal pain Qualifiers: Abdominal location: generalized Qualified Code(s): R10.84 - Generalized abdominal pain Condition: Stable Referrals: Jeannie Valladares MD [Primary Care Provider] - 2 weeks (Please call Dr Valladares's office and make an appointment within 2 weeks for a hospital follow up. [phone]) iAmee Ruby MD [Physician] - 1 month ([facility] Thursday for an appointment in one month. If you don't hear from them, please call [phone]) Discharge Diet: Advance as tolerated, Usual diet and GI Soft Discharge Activity: Resume usual activity Patient Instructions: Clostridium Difficile, Famotidine (By mouth), Sucralfate (By mouth), Vancomycin (By mouth), Depression (DC), Abdominal Pain (ED) Additional Instructions: Please take vancomycin orally for next 2 weeks for colitis. Please follow-up with your primary care provider within next 2 weeks to 3 weeks. Please follow-up with Dr. Iglesias in from [facility] within next 1 month. Discharge Date/Time: 07/27/20 09:19 Coding Level of Care Code ED Superannuation Funds Manager for Chg Fwd Exam Comprehensive
[2020-07-27] MEDS: HYDROmorphone 1 mg/mL INJ 1 mL IVP (04:58)
[2020-07-27] MEDS: sodium chloride 0.9% 1,000 ML 999 ML IV (04:59)
[2020-07-27] MEDS: ondansetron 2 mg/ML SDV 2 mL 4 MG IVP ×3 (05:00→22:29)
[2020-07-27 05:11] LABS: Add Urine Microscopic? NO
[2020-07-27 05:13] LABS: Basophils % 0.5 %; Eosinophils # 0.2 10^3/uL (0.0-0.8); Eosinophils % 2.8 %; Hematocrit 41.6 % (37.0-47.0); Hemoglobin 13.7 g/dL (11.5-15.3); Lymphocytes # 3.3 10^3/uL (1.5-6.5); Lymphocytes % 43.5 %; Mean Corpuscular HGB Conc 32.9 g/dL (30.0-36.0); Mean Corpuscular Hemoglobin 29.5 pg (28.0-34.0); Mean Corpuscular Volume 89.5 fL (81-99); Mean Platelet Volume 10.6 fL (7.4-10.4); Monocytes # 0.5 10^3/uL (0.2-0.9); Neutrophils # 3.48 10^3/uL (1.8-8.0); Neutrophils % 45.9 %; Nucleated Red Blood Cells % 0 %; Platelet Count 315 10^3/cmm (130-400); Red Blood Count 4.65 10^6/uL (4.1-5.3); Red Cell Distribution Width 12.1 % (12.1-15.1); White Blood Count 7.6 10^3/uL (4.5-13.0)
[2020-07-27 05:20] LABS: Bilirubin Urine Neg (Negative); Blood Urine Neg (Negative); Glucose Urine UA Norm (Normal); Ketones Urine Negative (Negative); Leukocyte Esterase Urine Negative (Negative); Nitrate Urine Negative (Negative); Protein Urine Neg (Negative); Urine Appearance Clear (CLEAR); Urine Color Yellow (Yellow); Urobilinogen Urine Norm (Negative); pH Urine 6 (5-7)
[2020-07-27 05:25] LABS: HCG, Serum Qual Negative (Negative)
[2020-07-27] MEDS: metoclopramide 5 mg/mL SDV 2 mL 10 MG IVP (05:36)
[2020-07-27] MEDS: diphenhydrAMINE 50 mg/mL SDV 1mL IVP (05:37)
[2020-07-27 05:39] LABS: Alanine Aminotransferase 9 U/L (0-33); Albumin Level 4.2 g/dL (3.5-5.2); Alkaline Phosphatase 59 IU/L (35-105); Aspartate Amino Transferase 16 U/L (0-32); Blood Urea Nitrogen 7 mg/dL (6-20); Carbon Dioxide 24 mmol/L (22-29); Chloride 106 mmol/L (98-107); Creatinine Clr Calc Pharmacy 152.6421; Globulin 3.5 g/dL (1.3-4.6); Glomerular Filtration Rate 127.5 mL/min (90-130); Glucose 103 mg/dL (65-115); Lipase 37 U/L (13-60); Osmolality Calculated 286 mOsm/kg (285-295); Sodium 139 mmol/L (136-145); Total Bilirubin 0.4 mg/dL (0.15-1.2); Total Protein 7.7 g/dL (6.6-8.7)
[2020-07-27] MEDS: iohexol 300 mg/mL 100 mL Btl IV (05:42)
--- NOTE | 2020-07-27 06:59 | PC.NURSE ---
took report from WILLY Taylor
[2020-07-27 10:27] LABS: Amphetamines Screen Urine Negative (Negative); Barbiturates Screen Urine Negative (Negative); Benzodiazepines Screen Urine Negative (Negative); Cocaine Screen Urine Negative (Negative); Opiate Screen Urine Negative (Negative); PCP Screen Urine Negative (Negative); THC Screen Urine Negative (Negative)
[2020-07-27 10:53] LABS: Thyroid Stimulating Hormone 2.03 uIU/mL (0.27-4.20)
[2020-07-27] MEDS: morphine 4 mg/mL SDV 1 mL 2 MG IVP ×2 (10:56→22:19)
[2020-07-27] MEDS: sodium chlor 0.9% + KCl 20 mEq 20 MEQ/1,000 ML BAG 100 MEQ IV ×2 (11:04→19:51)
--- NOTE | 2020-07-27 12:46 | P.HP_ITS ---
Providers/Chief Complaint Admitting Physician: Tricia Gomez DO Primary Care Provider: Jeannie Valladares MD Chief Complaint: abd pain/ said feels like its on fire History of Present Illness Gay Del Cid is a 19 year old female that presented to the emergency department for abdominal pain. She stated that she initially started having severe pelvic pain that was cramping in nature and also felt as a burning sensation. She stated that then it developed into a right upper quadrant pain under her ribs. She stated that she has had pain like this in the past and it waxes and wanes. She reports that she has been having work-up for rectal bleeding. She reports having a history of a colonoscopy and EGD 3 years ago. Recently had an EGD prior to having her gallbladder out. Stated that since having her gallbladder out things have improved slightly but she continues to have abdominal pain after eating any meal. She reports that her primary care provider is trying to get her set up with a revenue collector in [place]. Patient denies any fevers or chills, denies anybody else that is been sick in the home. She states that sometimes her symptoms will start 1 week before her cycle with increased pain and increase in bloody stools. She stated that she typically has pelvic pain but today it felt like someone was pouring hot sauce on her bowels, reported intense burning. Review of Systems Const: Denies: fever(s) or chills Eyes: Denies: change in vision ENMT: Denies: nasal congestion Card: Denies: chest pain, palpitations or edema Resp: Denies: dyspnea, productive cough or hemoptysis GI: Reports: abdominal pain, nausea, diarrhea and hematochezia; Denies: vomiting, constipation or melena : Denies: dysuria or hematuria Musc: Denies: extremity pain or muscle cramps Skin/Breast: Denies: rash or new lesions Neuro: Denies: headache(s) or dizziness Psych: Denies: anxiety or depression Endo: Denies: polyuria or hot flashes Miguel/Lymph: Denies: easy bruising or easy bleeding Medications/Allergies Home Medications Medication Instructions Recorded Confirmed Last Taken Type etonogestrel-ethinyl estradiol 1 vag ring VAGINAL Q21D 03/19/20 07/27/20 07/27/20 History [NuvaRing] acetaminophen [Tylenol Extra 1,000 mg PO PRN PRN 05/23/20 07/27/20 07/27/20 History Strength] sertraline 50 mg PO DAILY 05/23/20 07/27/20 07/26/20 History ketoconazole 2 % topical cream 1 applic TOPICAL DAILY 14 Days #15 06/25/20 07/27/20 Unknown Rx gm Allergies Allergy/AdvReac Type Severity Reaction Status Date / Time prednisone Allergy ADR-Anxiety Verified 06/25/20 14:59 PFSH Acute PFSH: Medical History (Updated 07/27/20 @ 13:06 by Tricia Gomez DO) Depression Surgical History (Updated 07/27/20 @ 13:07 by Tricia Gomez DO) History of colonoscopy (~2018) History of esophagogastroduodenoscopy (EGD) (03/19/20) History of tonsillectomy Status post laparoscopic cholecystectomy (03/19/20) Family History Denies family history of Anesthesia complication Bleeding disorder Social History (Updated 07/27/20 @ 13:08 by Tricia Gomez DO) Smoking and tobacco status: current some day smoker e-cigarettes E-Cigarette Details: vaporizer device Alcohol intake: never Substance/Drug Use: never Adopted: Yes Current occupational status: employed History of recent travel: No Sexually active: Yes Female Reproductive History: Date of last menstrual period: 07/16/20 control method: vaginal ring Vitals/I&O/Wt Last Vital Signs Temp 98.0 F 07/27/20 11:41 Pulse 68 07/27/20 11:41 Resp 18 07/27/20 11:41 BP 117/74 07/27/20 11:41 Pulse Ox 99 07/27/20 11:41 07/26/20 07/27/20 07/27/20 22:59 06:59 14:59 Intake Total 1000 / 1000 Balance 1000 / 1000 Weight last 48 hrs Weight 65.771 kg Physical Exam Const: COMMON NORMALS: patient oriented x3 and alert GENERAL APPEARANCE: cooperative ORIENTATION/CONSCIOUSNESS: Yes awake, Yes oriented to person, Yes oriented to place and Yes oriented to time HENMT: COMMON NORMALS: normocephalic and atraumatic HEAD & SCALP: normocephalic and atraumatic Eye: COMMON NORMALS: Equal, round and reactive pupils present PUPIL: Yes Equal, round and reactive pupils present Neck/C-Spine: COMMON NORMALS: supple GENERAL: Yes normal visual inspection Resp: COMMON NORMALS: normal respiratory effort and clear to auscultation bilaterally EFFORT & INSPECTION: Yes able to speak in complete sentences AUSCULTATION: clear to auscultation bilaterally, no rhonchi and no wheezes Cardio: COMMON NORMALS: regular rate, regular rhythm and No murmurs present (Cardio) RATE: regular rate RHYTHM: regular rhythm GI: COMMON NORMALS: Soft to palpation INSPECTION: No abdominal distension AUSCULTATION: Yes normoactive bowel sounds PALPATION: Yes Soft to palpation OTHER: Nonspecific tenderness to palpation throughout the abdomen, no guarding or rigidity, normal bowel sounds Extremity: COMMON NORMALS: no clubbing, cyanosis or edema and no calf tenderness Neuro: COMMON NORMALS: patient oriented x3, CN's II-XII intact bilaterally, moves all extremities and no focal motor deficits SENSORIUM/ORIENTATION: Yes alert, Yes oriented to person, Yes oriented to place and Yes oriented to time SPEECH: speech normal Psych: COMMON NORMALS: mental status grossly normal and cooperative Skin: COMMON NORMALS: no rashes or lesions noted GENERAL SKIN EXAM: no rashes or lesions noted Data : 07/27/20 04:54 07/27/20 04:54 CT Abd/Pel: I personally reviewed and interpreted this imaging study as follows: Radiologist's impression: IMPRESSION: There are few nondilated loops of small bowel present containing some fluid and a few air-fluid levels, findings that could represent mild ileus. A&P Assessment and plan (1) Abdominal pain: Patient reports pelvic pain in the lower abdomen that is now radiated to the upper abdomen. No evidence of any acute pathology on CT scan of the abdomen and pelvis Keep n.p.o. for bowel rest IV fluids Antiemetics Patient reports some cyclical changes questioning some underlying irritable bowel disease versus endometriosis versus celiac. Recommend outpatient gastroenterology follow-up. We will continue with conservative management at this time. Patient symptoms have somewhat improved and will hold off on surgical consultation at this time. Discussed with patient's primary care provider on admission and made her aware, stool studies ordered and pending. No concern for any infectious process at this time, will await stool studies. Patient reports that her LMP was a week and a half ago, hCG is negative. Patient denies any vaginal discharge, no malodorous drainage, no concern for any sexually transmitted infection or disease Status: Acute Qualifiers: Abdominal location: generalized Qualified Code(s): R10.84 - Generalized abdominal pain (2) Depression: Continue home sertraline Status: Acute (3) Status post laparoscopic cholecystectomy: Status: Acute Attestations Medical Necessity Statement*: Observation due to intractable nausea vomiting and abdominal pain, expected stay less than 2 midnights Coding Level of Care Code Acute Cart Pusher for Chg Fwd Exam Comprehensive Diagnoses Abdominal pain R10.84 Abdominal location: generalized Depression F32.9 Status post laparoscopic cholecystectomy Z90.49
[2020-07-27] MEDS: calcium carbonate 500 mg Chew Tablet 1000 MG PO (22:33)
--- NOTE | 2020-07-27 22:47 | PC.NURSE ---
Patient reports severe burning radiating to her neck. She reports her left arm is tingly, and doesn't feel right. Vital signs unremarkable with the exception of RR 28. Notified Dr. Gunn states he will place an order for ativan 0.25mg x 1, will monitor for reduced o2 saturation, tachycardia. SCDs on while in bed.
[2020-07-27] MEDS: LORazepam 2 mg/mL INJ 1 mL 0.5 MG IVP (22:56)
[2020-07-28] VITALS (7 sets, daily range): BP systolic 108–129; BP diastolic 58–74; PULSE 67–81; RESP 17–20; TEMP 36.8–37; O2SAT 96–99
--- NOTE | 2020-07-28 | PC.NURSE ---
Patient resting. RR 18. No further complaint of abdominal burning or left arm tingling. Will fiorella.
[2020-07-28 05:31] LABS: Basophils % 0.5 %; Eosinophils # 0.3 10^3/uL (0.0-0.8); Hematocrit 37.4 % (37.0-47.0); Hemoglobin 12.5 g/dL (11.5-15.3); Lymphocytes # 2.6 10^3/uL (1.5-6.5); Lymphocytes % 42.6 %; Mean Corpuscular HGB Conc 33.4 g/dL (30.0-36.0); Mean Corpuscular Hemoglobin 30.5 pg (28.0-34.0); Mean Corpuscular Volume 91.2 fL (81-99); Mean Platelet Volume 10.9 fL (7.4-10.4); Monocytes # 0.4 10^3/uL (0.2-0.9); Monocytes % 6.3 %; Neutrophils % 45.3 %; Nucleated Red Blood Cells % 0 %; Platelet Count 268 10^3/cmm (130-400); Red Cell Distribution Width 12.1 % (12.1-15.1); White Blood Count 6.2 10^3/uL (4.5-13.0)
[2020-07-28] MEDS: acetaminophen 325 mg Tablet 650 MG PO ×2 (05:31→12:21)
[2020-07-28] MEDS: sodium chlor 0.9% + KCl 20 mEq 20 MEQ/1,000 ML BAG 100 MEQ IV ×2 (05:34→17:24)
[2020-07-28 06:00] LABS: Alanine Aminotransferase 7 U/L (0-33); Albumin Level 3.5 g/dL (3.5-5.2); Alkaline Phosphatase 48 IU/L (35-105); Anion Gap 12.1 (5-19); Aspartate Amino Transferase 12 U/L (0-32); Blood Urea Nitrogen 5 mg/dL (6-20); Carbon Dioxide 23 mmol/L (22-29); Chloride 108 mmol/L (98-107); Globulin 2.6 g/dL (1.3-4.6); Glomerular Filtration Rate 106.7 mL/min (90-130); Glucose 78 mg/dL (65-115); Osmolality Calculated 284 mOsm/kg (285-295); Potassium 4.1 mmol/L (3.5-5.1); Sodium 139 mmol/L (136-145); Total Bilirubin 0.5 mg/dL (0.15-1.2); Total Protein 6.1 g/dL (6.6-8.7)
[2020-07-28] MEDS: sertraline 50 mg Tablet PO (07:57)
[2020-07-28] MEDS: pantoprazole DR 40 mg Tablet PO (07:57)
[2020-07-28] MEDS: ondansetron 2 mg/ML SDV 2 mL 4 MG IVP (09:25)
--- NOTE | 2020-07-28 09:35 | ECG_ITS ---
[facility] Test Date: 2020-07-28 Pat Name: Gay Del Cid Department: Room: 268 Gender: Female Tire Recapper: : 2000 Requested By: Holland Solorzano Order Number: [id number] Gabrielle MD: Artem Pretty M.D. Measurements Intervals [place] Rate: 75 P: 62 AK: 127 QRS: 64 QRSD: 92 T: 28 QT: 380 QTc: 425 Interpretive Statements SINUS RHYTHM WITH SINUS ARRHYTHMIA Compared to ECG 12/13/2015 17:54:35 No significant changes Electronically Signed On 07-28-2020 18:05:10 CDT by Artem Pretty M.D. [id number]
[2020-07-28] MEDS: promethazine 25 mg/mL SDV 1 mL 12.5 MG IM (10:32)
[2020-07-28] MEDS: sucralfate 1 gm/10 mL Oral Liq UDC PO ×3 (10:33→20:42)
[2020-07-28] MEDS: morphine 4 mg/mL SDV 1 mL 2 MG IVP (10:35)
--- NOTE | 2020-07-28 12:34 | P.PN_ITS ---
Subjective Subjective: Interval history: Hospital course appreciated. No acute event overnight. Patient continues to complain of abdominal pain along with nausea. Tolerating clear liquid diet on and off. Has remained afebrile. Hemodynamically stable. Patient states she has been having this problem on and off almost every month for last 3 years along with occasional hematochezia. Denies of having any hematochezia at present. Labs, imaging, vitals appreciated. Vitals/I&O/Wt Last Vital Signs Temp 98.5 F 07/28/20 11:22 Pulse 73 07/28/20 11:22 Resp 18 07/28/20 11:22 BP 112/63 07/28/20 11:22 Pulse Ox 96 07/28/20 11:22 07/27/20 07/28/20 07/28/20 22:59 06:59 14:59 Intake Total 878.333 / 3383.449 3683.667 / 3290.000 180 / 180 Output Total 1100 / 1100 1150 / 2250 1200 / 1200 Balance -221.667 / 778.333 261.667 / 1040.000 -1020 / -1020 Weight last 48 hrs Weight 71.271 kg Weight 65.771 kg Physical Exam Const: COMMON NORMALS: patient oriented x3 and alert GENERAL APPEARANCE: cooperative ORIENTATION/CONSCIOUSNESS: Yes awake, Yes oriented to person, Yes oriented to place and Yes oriented to time HENMT: COMMON NORMALS: normocephalic and atraumatic HEAD & SCALP: normocephalic and atraumatic Eye: COMMON NORMALS: Equal, round and reactive pupils present PUPIL: Yes Equal, round and reactive pupils present Neck/C-Spine: COMMON NORMALS: supple GENERAL: Yes normal visual inspection Resp: COMMON NORMALS: normal respiratory effort and clear to auscultation bilaterally EFFORT & INSPECTION: Yes able to speak in complete sentences AUSCULTATION: clear to auscultation bilaterally, no rhonchi and no wheezes Cardio: COMMON NORMALS: regular rate, regular rhythm and No murmurs present (Cardio) RATE: regular rate RHYTHM: regular rhythm GI: COMMON NORMALS: Soft to palpation INSPECTION: No abdominal distension AUSCULTATION: Yes normoactive bowel sounds PALPATION: Yes Soft to palpation OTHER: Non tender,soft, no rebound, no guarding or rigidity, normal bowel sounds Extremity: COMMON NORMALS: no clubbing, cyanosis or edema and no calf tenderness Neuro: COMMON NORMALS: patient oriented x3, CN's II-XII intact bilaterally, moves all extremities and no focal motor deficits SENSORIUM/ORIENTATION: Yes alert, Yes oriented to person, Yes oriented to place and Yes oriented to time SPEECH: speech normal Psych: COMMON NORMALS: mental status grossly normal and cooperative Skin: COMMON NORMALS: no rashes or lesions noted GENERAL SKIN EXAM: no rashes or lesions noted Data : 07/28/20 04:34 07/28/20 04:34 A&P Assessment and plan (1) Abdominal pain: Patient reports pelvic pain in the lower abdomen that is now radiated to the upper abdomen. No evidence of any acute pathology on CT scan of the abdomen and pelvis We will give trial of clear liquid diet. Continue with normal saline with potassium supplementation at current rate. Continue with Zofran for nausea as needed for vomiting. We will check EKG for QTC monitoring. Patient reports some cyclical changes questioning some underlying irritable bowel disease versus endometriosis versus celiac. Recommend outpatient gastroenterology follow-up. We will continue with conservative management at this time. Patient symptoms have somewhat improved and will hold off on surgical consultation at this time. Discussed with patient's primary care radha durham on admission and made her aware, stool studies ordered and pending. No concern for any infectious process at this time, will await stool studies. Patient reports that her LMP was a week and a half ago, hCG is negative. Patient denies any vaginal discharge, no malodorous drainage, no concern for any sexually transmitted infection or disease. Case discussed with Dr. Iglesias from [facility]. She states to continue the current treatment for now. Does not recommend any further investigations. States patient would require outpatient follow-up and would be happy to see her the next 2 weeks. Status: Acute Qualifiers: Abdominal location: generalized Qualified Code(s): R10.84 - Generalized abdominal pain (2) Depression: Continue home sertraline Status: Acute (3) Status post laparoscopic cholecystectomy: Status: Acute Attestations Medical Necessity Statement*: Abdominal pain, nausea, vomiting. Unable to tolerate p.o. diet. 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
--- NOTE | 2020-07-28 14:43 | PC.CHAP ---
Pastoral Care Encounter/Spiritual Assessment Type of Contact [] Declined oil field pumper visit [] Patient/Family/Request visit [] Outpatient visit [] Follow-up visit [] Physician referral [] Code/Alert [X] Routine visit [] Staff referral [] Actively dying [] Patient sleeping [] Family support [] [] Out of room [] Palliative care [] [] Receiving care in room [] Pre-surgical visit [] Trauma [] Long length of stay [] ICU visit [] Other: Relational/Emotional Strength [] Patient feels connected with others/family/visitors/staff [] Distress [] Loneliness/isolation [] Abandonment Spirituality of Patient [] Person of Nataliia [] Attends Cheondoism of their Nataliia [] Believes in Prayer [] Reads Bible or Islam materials [] There are Spiritual issues to be addressed Magazine Keeper Interventions [] Prayer [] Active listening [] Non-anxious presence [] Spiritual/emotional support [] Crisis/trauma care [] Spiritual counseling [] Bereavement support [] Provided bereavement packet [] Provided Bible/devotional materials [] Provided toy/stuffed animal, coloring book to patient or family member [] Provided Communion [] Anointing/[place] [] Salvation [] Completed spiritual assessment [] Other: Impact on Illness or Injury [] Angry [] Fearful [] Anxious [] Often cries [] Exhaustion [] Unable to work [] Unable to attend anabaptist [] Unable to walk/stand [] Unable to read [] Unable to drive [] Unable to eat/drink [] Unable to sleep [] Unable to be with family [] Patient intubated [] Other: Summary Time spent with patient
[2020-07-28] MEDS: dextrose 5%-sod chloride 0.45% 1,000 ML 30 ML IV (20:42)
[2020-07-29] VITALS: BP 112/66; PULSE 70; RESP 16; TEMP 36.9
[2020-07-29] MEDS: acetaminophen 325 mg Tablet 650 MG PO ×2 (00:05→11:43)
[2020-07-29 02:50] LABS: Basophils % 0.5 %; Eosinophils # 0.4 10^3/uL (0.0-0.8); Eosinophils % 5.5 %; Hematocrit 35.6 % (37.0-47.0); Hemoglobin 11.8 g/dL (11.5-15.3); Lymphocytes # 2.6 10^3/uL (1.5-6.5); Lymphocytes % 39.8 %; Mean Corpuscular HGB Conc 33.1 g/dL (30.0-36.0); Mean Corpuscular Hemoglobin 29.2 pg (28.0-34.0); Mean Corpuscular Volume 88.1 fL (81-99); Mean Platelet Volume 11.1 fL (7.4-10.4); Monocytes # 0.6 10^3/uL (0.2-0.9); Neutrophils # 2.98 10^3/uL (1.8-8.0); Nucleated Red Blood Cells % 0 %; Platelet Count 277 10^3/cmm (130-400); Red Blood Count 4.04 10^6/uL (4.1-5.3); Red Cell Distribution Width 11.9 % (12.1-15.1); White Blood Count 6.6 10^3/uL (4.5-13.0)
[2020-07-29 03:04] LABS: Hepatitis B Surface AB 3.5 (0-8.5); Hepatitis B Surface Antigen Non-Reactive (Nonreactive); Hepatitis C Virus Antibody Non-Reactive (Nonreactive)
[2020-07-29 03:31] LABS: HIV 1 & 2 Antibody Non-Reactive (Non-Reactiv); HIV 1 & 2 Antigen Non-Reactive (Non-Reactiv)
[2020-07-29 04:00] VITALS: BP 107/57; PULSE 63; RESP 17; TEMP 36.6; O2SAT 97
[2020-07-29 07:34] VITALS: BP 108/66; PULSE 72; RESP 20; TEMP 36.9; O2SAT 97
[2020-07-29] MEDS: sucralfate 1 gm/10 mL Oral Liq UDC PO ×2 (08:59→11:37)
[2020-07-29] MEDS: pantoprazole DR 40 mg Tablet PO (08:59)
[2020-07-29] MEDS: sertraline 50 mg Tablet PO (09:00)
[2020-07-29 11:34] VITALS: BP 110/66; PULSE 79; RESP 18; TEMP 37.1; O2SAT 98
--- NOTE | 2020-07-29 12:41 | PM.DCS ---
Discharge Providers Date of Admission: 07/27/20 08:42 Date of Discharge: July 29, 2020 Attending Provider at Admission: Tricia Gomez DO Attending Provider at Discharge: Holland Solorzano MD Primary Care Provider: Jeannie Valladares MD Diagnoses at Discharge Discharge Diagnosis (1) Abdominal pain: Status: Acute Qualifiers: Abdominal location: generalized Qualified Code(s): R10.84 - Generalized abdominal pain (2) Depression: Status: Acute (3) Status post laparoscopic cholecystectomy: Status: Acute (4) C. difficile diarrhea: Status: Acute Reason for Visit Reason for Visit: abd pain/ said feels like its on fire Hospital Course Discharge Summary: Gay Del Cid is a 19 year old female that presented to the emergency department for abdominal pain. She stated that she initially started having severe pelvic pain that was cramping in nature and also felt as a burning sensation. She stated that then it developed into a right upper quadrant pain under her ribs. She stated that she has had pain like this in the past and it waxes and wanes. She reports that she has been having work-up for rectal bleeding. She reports having a history of a colonoscopy and EGD 3 years ago. Recently had an EGD prior to having her gallbladder out. Stated that since having her gallbladder out things have improved slightly but she continues to have abdominal pain after eating any meal. She reports that her primary care provider is trying to get her set up with a library customer service clerk in [place]. Patient denies any fevers or chills, denies anybody else that is been sick in the home. She states that sometimes her symptoms will start 1 week before her cycle with increased pain and increase in bloody stools. She stated that she typically has pelvic pain but today it felt like someone was pouring hot sauce on her bowels, reported intense burning. She was admitted to the hospital for conservative management. CT abdomen pelvis was done on admission which was negative for any acute pathology. She was gradually started on diet. Currently she is able to tolerate liquid diet well. It is believed that patient symptoms are most likely because of underlying IBS versus endometriosis versus celiac. Patient's care was discussed with Dr. Iglesias and from [facility] who advised for her to follow-up as an outpatient within next 1 month. Stool studies were sent because of occasional diarrhea which came back positive for C. difficile. Patient is been discharged in hemodynamically stable condition with oral vancomycin for 2 weeks with advised to follow-up with her primary care provider within next 2 to 3 weeks and [facility] within next 1 month. Patient is also advised to follow-up with an outpatient library customer service clerk for further work-up of chronic abdominal pain along with occasional hematochezia. She is advised to advance her diet to GI soft for next 1 week and advised to have multiple small meals and then advance eventually to regular diet. Physical Exam Const: COMMON NORMALS: patient oriented x3 and alert GENERAL APPEARANCE: cooperative ORIENTATION/CONSCIOUSNESS: Yes awake, Yes oriented to person, Yes oriented to place and Yes oriented to time HENMT: COMMON NORMALS: normocephalic and atraumatic HEAD & SCALP: normocephalic and atraumatic Eye: COMMON NORMALS: Equal, round and reactive pupils present PUPIL: Yes Equal, round and reactive pupils present Neck/C-Spine: COMMON NORMALS: supple GENERAL: Yes normal visual inspection Resp: COMMON NORMALS: normal respiratory effort and clear to auscultation bilaterally EFFORT & INSPECTION: Yes able to speak in complete sentences AUSCULTATION: clear to auscultation bilaterally, no rhonchi and no wheezes Cardio: COMMON NORMALS: regular rate, regular rhythm and No murmurs present (Cardio) RATE: regular rate RHYTHM: regular rhythm GI: COMMON NORMALS: Soft to palpation INSPECTION: No abdominal distension AUSCULTATION: Yes normoactive bowel sounds PALPATION: Yes Soft to palpation OTHER: Non tender,soft, no rebound, no guarding or rigidity, normal bowel sounds Extremity: COMMON NORMALS: no clubbing, cyanosis or edema and no calf tenderness Neuro: COMMON NORMALS: patient oriented x3, CN's II-XII intact bilaterally, moves all extremities and no focal motor deficits SENSORIUM/ORIENTATION: Yes alert, Yes oriented to person, Yes oriented to place and Yes oriented to time SPEECH: speech normal Psych: COMMON NORMALS: mental status grossly normal and cooperative Skin: COMMON NORMALS: no rashes or lesions noted GENERAL SKIN EXAM: no rashes or lesions noted Discharge Data Data Completed and Pending: Completed Studies During Hospitalization Category Date Time Status CT abdomen pelvis w con* [id number] Urge nt Cat Scan 07/27/20 04:50 Completed Pending at discharge Category Date Time Status Complete Blood Co unt w/Auto AM LABS Lab 07/30/20 04:00 Ordered Labs from last 24 hours 07/29/20 07/29/20 07/29/20 01:35 01:35 01:35 WBC 6.6 RBC 4.04 L Hgb 11.8 Hct 35.6 L MCV 88.1 MCH 29.2 MCHC 33.1 RDW 11.9 L Plt Count 277 MPV 11.1 H Neut % (Auto) 45.0 Lymph % (Auto) 39.8 [place] % (Auto) 9.0 Eos % (Auto) 5.5 Baso % (Auto) 0.5 Neut # (Auto) 2.98 Lymph # (Auto) 2.6 [place] # (Auto) 0.6 Eos # (Auto) 0.4 Baso # (Auto) 0.0 Nucleated RBC % (a uto) 0 Nucleated RBCs # 0.0 Hep Bs Antigen Non-reactive Hep Bs Antibody 3.5 Hepatitis C Antibo dy Non-reactive HIV 1&2 Ab & HIV 1 Ag Non-reactive HIV 1&2 Antibody Non-reactive Vitals: Last Vital Signs Temp 98.8 F 07/29/20 11:34 Pulse 79 07/29/20 11:34 Resp 18 07/29/20 11:34 BP 110/66 07/29/20 11:34 Pulse Ox 98 07/29/20 11:34 Discharge Plan Discharge Patient Disposition: Home Condition: Stable Prescriptions: New sucralfate 100 mg/mL Suspension 1 g PO AC&BEDTIME Qty: 100 RF: 0 famotidine [Pepcid AC] 20 mg tablet 20 mg PO BID Qty: 14 RF: 0 vancomycin [Vancocin] 125 mg capsule 125 mg PO QID 14 Days Qty: 56 RF: 0 Continued ketoconazole 2 % cream 1 applic TOPICAL DAILY 14 Days Qty: 15 RF: 0 etonogestrel-ethinyl estradiol [NuvaRing] 0.12-0.015 mg/24 hr ring 1 vag ring VAGINAL Q21D RF: 0 acetaminophen [Tylenol Extra Strength] 500 mg Tablet 1,000 mg PO PRN PRN (Reason: Pain) RF: 0 sertraline 50 mg tablet 50 mg PO DAILY RF: 0 Discharge Orders: Discharge Order (Routine); Ordered 07/29/20 Ordered By: Holland Solorzano Referrals: Jeannie Valladarse MD [Primary Care Provider] - 2 weeks Aimee Ruby MD [Physician] - 1 month Discharge Diet: Advance as tolerated, Usual diet and GI Soft Discharge Activity: Resume usual activity Patient Instructions: Abdominal Pain (ED) Activity Restrictions/Additional Instructions: Please take vancomycin orally for next 2 weeks for colitis. Please follow-up with your primary care provider within next 2 weeks to 3 weeks. Please follow-up with Dr. Iglesias in from [facility] within next 1 month. Discharge Attestations Time Spent in Discharge Care*: greater than 30 min Specific Discharge Activities: Specific discharge activities: educating patient, discussing with pcp/other providers, discussing with heel caser/social workers/dc planners, documenting/other paperwork and evaluating patient/reviewing data Status at Discharge: Cognitive status at discharge: cognitively intact, Behavioral status at discharge: cooperative, Functional status at discharge: independent ambulation Overall status at discharge: patient is progressing back to baseline Quality Metrics Clinical Quality Measures During this hospital stay, did patient experience: None Coding Level of Care Code 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 difficile diarrhea A04.72
[2020-07-29 14:41] VITALS: BP 110/66; PULSE 79; RESP 18; TEMP 37.1; O2SAT 98
--- NOTE | 2020-08-01 16:38 | PC.RESP ---
Smoking Cessation information sent to patient.
== END 2020-07-29 14:30 | disposition home or self-care (01) ==
LOC: ER 06:16 → MEDSURG 08:53
PROVIDERS: Emergency Medicine; Admitting Provider Family Medicine; PCP Internal Medicine; Visit Provider Student in an Organized Health Care Education/Training Program
DX: R10.84 Generalized abdominal pain (principal); R11.2 Nausea with vomiting, unspecified; A04.72 Enterocolitis due to Clostridium difficile, not specified as recurrent; F32.9 Major depressive disorder, single episode, unspecified; F17.210 Nicotine dependence, cigarettes, uncomplicated; Z90.49 Acquired absence of other specified parts of digestive tract
CPT/HCPCS: 12345; 36415; 74177; 80053; 80306; 81003; 82274; 83630; 83690; 84443; 84703; 85025; 86706; 86803; 87340; 87493; 87506; 87806; 93005; 96360; 96361; 96374; 96375; 99284; 99285; G0378; J1170; J1200; J2060; J2270; J2405; J2550; J2765; J3370; J7030; J7799; Q9967

== ENCOUNTER → 2020-08-15 09:17 | Outpatient (BNVA) | payer SELFPAY | PROVIDERS: PCP Internal Medicine; Visit Provider Obstetrics & Gynecology | DX: Z12.4 Encounter for screening for malignant neoplasm of cervix (principal); N80.9 Endometriosis, unspecified; N94.6 Dysmenorrhea, unspecified; R10.84 Generalized abdominal pain | CPT/HCPCS: 87624; 88175 ==

== ENCOUNTER → 2020-09-07 13:04 | Outpatient (BNVA) | payer SELFPAY | PROVIDERS: PCP Internal Medicine; Visit Provider Obstetrics & Gynecology | DX: R10.2 Pelvic and perineal pain (principal) | CPT/HCPCS: 76830 ==

== ENCOUNTER 2020-09-20 23:35 | Emergency (ER) | payer SELFPAY ==
[2020-09-20 23:47] VITALS: BP 113/73; PULSE 82; RESP 17; TEMP 36.7; O2SAT 98; BMI 19.9
--- NOTE | 2020-09-20 23:58 | CTR_ITS ---
PROCEDURE INFORMATION: Exam: CT Abdomen And Pelvis With Contrast Exam date and time: 09/20/2020 11:59 PM Age: 19 years old Clinical indication: Abdominal pain; Generalized; Prior surgery; Surgery date: 6+ months; Surgery type: Gb TECHNIQUE: Imaging protocol: Computed tomography of the abdomen and pelvis with intravenous contrast. Radiation optimization: All CT scans at this facility use at least one of these dose optimization techniques: automated exposure control; mA and/or kV adjustment per patient size (includes targeted exams where dose is matched to clinical indication); or iterative reconstruction. Contrast material: OMNI 300; Contrast volume: 95 ml; Contrast route: INTRAVENOUS (IV); COMPARISON: CT abdomen pelvis w con* [id number] 07/27/2020 5:37 AM RADIATION DOSE METRICS: Total DLP (mGy-cm): 381.82 FINDINGS: Liver: Normal. No mass. Gallbladder and bile ducts: The gallbladder has been removed. No biliary ductal dilatation. Pancreas: Normal. No ductal dilation. Spleen: Normal. No splenomegaly. Adrenal glands: Normal. No mass. Kidneys and ureters: Normal. No hydronephrosis. Stomach and bowel: Unremarkable. No obstruction. No mucosal thickening. Appendix: The appendix is normal. Intraperitoneal space: Unremarkable. No free air. No significant fluid collection. Vasculature: Unremarkable. No abdominal aortic aneurysm. Lymph nodes: Unremarkable. No enlarged lymph nodes. Urinary bladder: Unremarkable as visualized. Reproductive: The uterus and adnexal structures appear normal. Bones/joints: Unremarkable. No acute fracture. Soft tissues: Unremarkable. CT/CT abdomen pelvis w con* [id number] IMPRESSION: No acute abnormality is seen in the abdomen or pelvis. Radiation Dose CTDIVOL = (mGy): DLP = 381.82 (mGy-cm)
[2020-09-21] VITALS (7 sets, daily range): BP systolic 105–133; BP diastolic 69–87; PULSE 56–77; RESP 16–17; TEMP 36.7; O2SAT 95–99
--- NOTE | 2020-09-21 | W.ED.ABDPA2 ---
HPI - Abdominal Pain General: Chief Complaint: Abdominal Pain Stated Complaint: lower ab pain Time Seen by Provider: 09/20/20 23:54 Source: patient Mode of arrival: ambulatory Limitations: no limitations History of Present Illness: HPI narrative: Gay is a nice 19-year-old female who comes in complaining of nausea vomiting and abdominal pain. Patient states she was working when she began to feel nauseated which is not uncommon for her at times. She thought it was because she has not eaten in quite some time. She was able to eat but then approximately 45 minutes after eating she developed diffuse burning abdominal pain across her mid abdomen and then did vomit. Patient has not had any diarrhea or constipation. She denies any vaginal discharge or bleeding. Patient did just recently have a transvaginal ultrasound which showed no evidence of ovarian cysts or pelvic pathology according to her. She denies history of kidney stones or having anything similar to this in the past. She states it feels better to press in on her abdomen and hurts worse to let off. She not had any fevers or chills. Patient denies any other complaints or concerns. Associated Symptoms: Reports nausea and vomiting; Denies chills, coffee ground emesis, constipation, GI cramping, diarrhea, dysuria, fever(s), heartburn, hematochezia, hematuria, hematemesis, melena and syncope Related Data: Date of Last Menstrual Period: 09/02/20 Review of Systems Const: Denies: fever(s), chills, body aches, fatigue, malaise or diaphoresis Eyes: Denies: change in vision, blurry vision, photophobia, eye discomfort, eye discharge, eye redness or yellow eyes ENMT: Denies: throat pain, odynophagia, hoarseness, swelling of lips/tongue, ear or mastoid pain, ear discharge, change in hearing or nasal discharge Card: Denies: chest pain, palpitations, irregular heart rhythm, edema, lightheadedness, syncope, pre-syncope, dyspnea on exertion or orthopnea Resp: Denies: dyspnea, productive cough, non-productive cough, wheezing, hemoptysis or chest congestion GI: Reports: abdominal pain, nausea and vomiting; Denies: hematemesis, coffee ground emesis, heartburn, diarrhea, constipation, GI cramping, hematochezia or melena : Denies: flank pain, dysuria, urinary frequency, urinary urgency or hematuria Musc: Denies: neck pain, back pain, extremity pain, extremity swelling, joint pain, joint swelling, joint redness, joint warmth or joint stiffness Skin/Breast: Denies: rash, pruritus, erythema, skin pain or skin tenderness Neuro: Denies: headache(s), numbness in extremities, weakness in extremities, sensory changes, lack of coordination, difficulty walking, dizziness, vertigo, confusion, Slurred speech present or seizure-like activity Miguel/Lymph: Denies: easy bruising, easy bleeding, petechiae, purpura or enlarged lymph nodes All/Imm: Denies: urticaria, throat swelling, tongue swelling, facial swelling or acute wheezing PFSH ED PFSH: Medical History (Updated 09/21/20 @ 02:07 by Tracy Ventura) Depression And anxiety diagnosed in 2019 and controlled with medication managed by primary care provider No pertinent past medical history Denies diabetes, asthma, hypertension, seizures, DVT/PE PMD: Dr. Zita Valladares Surgical History History of colonoscopy (~2018) History of esophagogastroduodenoscopy (EGD) (03/19/20) History of tonsillectomy Status post laparoscopic cholecystectomy (03/19/20) Performed [place] Dr. Juarez [place] [facility] [place] Family History Family/Other Adopted Patient was adopted and does not know her biological family history Social History Smoking and tobacco status: current some day smoker e-cigarettes E-Cigarette Details: vaporizer device Alcohol intake: never Adopted: Yes Current occupational status: employed History of recent travel: No Sexually active: Yes Female Reproductive History: Date of last menstrual period: 09/02/20 Physical Exam Const: COMMON NORMALS: no acute distress, patient oriented x3, no limitations and alert GENERAL APPEARANCE: cooperative HENMT: COMMON NORMALS: normocephalic, atraumatic, external ears normal, EAC's normal and Normal external nose present HEAD & SCALP: normal to inspection, normocephalic and atraumatic FACE & SINUS: normal facial exam and face symmetric NOSE: Normal external nose present and Normal nares present EXTERNAL EAR: Yes external ears normal EXTERNAL AUDITORY CANAL: EAC's normal MOUTH: Normal oral and palatal mucosa present, lip normal and tongue normal Eye: COMMON NORMALS: Equal, round and reactive pupils present and conjunctivae normal GENERAL EYE: appearance normal, both eyes and all related structures ALIGNMENT: Yes alignment normal PERIORBITAL: periorbital findings normal EYELID: eyelids normal CONJUNCTIVA: Yes conjunctivae normal SCLERA: sclerae normal PUPIL: Yes Equal, round and reactive pupils present Neck/C-Spine: COMMON NORMALS: full ROM, no lymphadenopathy, supple, no meningeal signs and no JVD GENERAL: Yes normal visual inspection and Yes trachea midline Chest: COMMONS NORMALS: normal inspection of the chest and normal palpation of entire chest wall Resp: COMMON NORMALS: normal respiratory effort, No retractions, No use of accessory muscles and clear to auscultation bilaterally EFFORT & INSPECTION: Yes able to speak in complete sentences and Yes symmetric chest movement AUSCULTATION: clear to auscultation bilaterally, no crackles, no rales, no rhonchi and no wheezes Cardio: COMMON NORMALS: no JVD, regular rate, regular rhythm, S1 normal heart sound present and S2 normal heart sound present RATE: regular rate RHYTHM: regular rhythm HEART SOUNDS: S1 normal heart sound present, S2 normal heart sound present, no click, no gallops, no murmurs and no rubs GI: COMMON NORMALS: Soft to palpation and No hepatosplenomegaly present PALPATION: Yes Soft to palpation, Yes Tenderness to palpation present (GI) (Mild diffusely without rebound or guarding.), No Guarding due to palpation present (GI), No Rigid due to palpation, Yes No hepatosplenomegaly present, No Hernia present, No Palpable mass present and No Pulsatile mass present : COMMON NORMALS: Yes no CVA tenderness BLADDER/KIDNEY EXAM: Yes no CVA tenderness EXTERNAL FEMALE EXAM: No Hernia present Back/Pelvis: COMMON NORMALS: no CVA tenderness, thoracic and lumbar spine normal to inspection, no thoracic nor lumbar tenderness and thoraco-lumbar ROM normal Extremity: COMMON NORMALS: normal to inspection, full ROM, capillary refill normal, no joint enlargement, no clubbing, cyanosis or edema and no calf tenderness Neuro: COMMON NORMALS: patient oriented x3, CN's II-XII intact bilaterally, moves all extremities, no focal motor deficits and no sensory deficits noted SENSORIUM/ORIENTATION: Yes alert MENINGEAL SIGNS: Yes no meningeal signs SPEECH: speech normal Psych: COMMON NORMALS: mental status grossly normal, Normal thought process present, cooperative, normal affect, speech normal and activity/motor behavior normal SPEECH: Yes normal speech THOUGHT PROCESS: Normal thought process present Skin: COMMON NORMALS: no rashes or lesions noted, turgor normal, no jaundice, no petechiae and no mottling GENERAL SKIN EXAM: no rashes or lesions noted and turgor normal Course Vital Signs: Vital signs: Vital Signs Temperature 98.1 F 09/21/20 03:10 Pulse Rate 61 09/21/20 03:10 Respiratory Rate 16 09/21/20 03:10 Blood Pressure 105/69 09/21/20 03:10 Pulse Oximetry 97 09/21/20 03:10 MDM - Abdominal Pain MDM Narrative: Medical decision making narrative: 0200 -tien anderson 19-year-old female comes in complaining of abdominal pain. Pain was preceded by nausea and then the pain developed and described as a burning pain. Patient denies any vaginal discharge or bleeding. Patient recently had a pelvic ultrasound that was normal. She states this pain does not feel like gynecologic pain. CT scan shows no sign of appendicitis. There is no sign of enlarged ovary, uterine fibroids or otherwise. Patient states she has been having loose stools recently as well. At this time on exam there is no sign of peritonitis. Patient declines any gynecologic exam. I do not feel like this is likely to be gynecologic in origin as there is no sign of cyst or torsion on CT. Patient pain seems to be higher up than the appendix would typically be but she has had a cholecystectomy. Patient agrees to return within 12 hours if her pain persists as developing appendicitis could still be a possibility of her pain. She agrees to return sooner if her pain gets much worse otherwise she will follow-up with her doctor if this persists but she still understands the importance of following up here to rule out appendicitis. Patient states at this time the pain feels more like a burning in her upper abdomen. I will going give her a GI cocktail. I did offer her a pelvic ultrasound just to definitively rule out ovarian torsion although I feel unlikely and she has declined. Differential Diagnosis: Differential diagnosis abdominal pain: Likely abdominal pain, acute appendicitis, calculus of kidney, constipation, diverticulitis, gastroenteritis, pancreatitis and small bowel obstruction Lab Data: Attestation: I reviewed the patient's lab results. Labs: Lab Results 09/20/20 09/20/20 09/20/20 Range/Units 23:55 23:55 23:55 WBC 8.8 (4.5-13.0) 10^3/ uL RBC 4.54 (4.1-5.3) 10^6/u L Hgb 13.6 (11.5-15.3) g/dL Hct 40.1 (37.0-47.0) % MCV 88.3 (81-99) fL MCH 30.0 (28.0-34.0) pg MCHC 33.9 (30.0-36.0) g/dL RDW 12.3 (12.1-15.1) % Plt Count 328 (130-400) 10^3/c mm MPV 10.6 H (7.4-10.4) fL Neut % (Auto) 52.8 % Lymph % (Auto) 37.9 % [place] % (Auto) 6.6 % Eos % (Auto) 2.0 % Baso % (Auto) 0.6 % Neut # (Auto) 4.65 (1.8-8.0) 10^3/u L Lymph # (Auto) 3.3 (1.5-6.5) 10^3/u L [place] # (Auto) 0.6 (0.2-0.9) 10^3/u L Eos # (Auto) 0.2 (0.0-0.8) 10^3/u L Baso # (Auto) 0.1 (0.0-0.1) 10^3/u L Nucleated RBC % (a uto) 0 % Nucleated RBCs # 0.0 /100WBC Sodium 138 (136-145) mmol/L Potassium 4.0 (3.5-5.1) mmol/L Chloride 104 (98-107) mmol/L Carbon Dioxide 24 (22-29) mmol/L Anion Gap 14.0 (5-19) BUN 6 (6-20) mg/dL Creatinine 0.5 (0.5-0.9) mg/dL GFR Calculation 157.3 H (90-130) mL/min Glucose 110 (65-115) mg/dL Calculated Osmolal ity 284 L (285-295) mOsm/k g Calcium 9.9 (8.5-10.5) mg/dL Total Bilirubin 0.2 (0.15-1.2) mg/dL AST 13 (0-32) U/L ALT 8 (0-33) U/L Alkaline Phosphata se 61 (35-105) IU/L Total Protein 7.3 (6.6-8.7) g/dL Albumin 4.5 (3.5-5.2) g/dL Globulin 2.8 (1.3-4.6) g/dL Lipase 45 (13-60) U/L HCG, Qual Negative (Negative) Urine Color (Yellow) Urine Appearance (CLEAR) Urine pH (5-7) Ur Specific Gravit y (1.005-1.030) Urine Protein (Negative) Urine Glucose (UA) (Normal) Urine Ketones (Negative) Urine Blood (Negative) Urine Nitrate (Negative) Urine Bilirubin (Negative) Urine Urobilinogen (Negative) mg/dL Ur Leukocyte Ella ase (Negative) 09/21/20 Range/Units 00:18 WBC (4.5-13.0) 10^3/ uL RBC (4.1-5.3) 10^6/u L Hgb (11.5-15.3) g/dL Hct (37.0-47.0) % MCV (81-99) fL MCH (28.0-34.0) pg MCHC (30.0-36.0) g/dL RDW (12.1-15.1) % Plt Count (130-400) 10^3/c mm MPV (7.4-10.4) fL Neut % (Auto) % Lymph % (Auto) % [place] % (Auto) % Eos % (Auto) % Baso % (Auto) % Neut # (Auto) (1.8-8.0) 10^3/u L Lymph # (Auto) (1.5-6.5) 10^3/u L [place] # (Auto) (0.2-0.9) 10^3/u L Eos # (Auto) (0.0-0.8) 10^3/u L Baso # (Auto) (0.0-0.1) 10^3/u L Nucleated RBC % (a uto) % Nucleated RBCs # /100WBC Sodium (136-145) mmol/L Potassium (3.5-5.1) mmol/L Chloride (98-107) mmol/L Carbon Dioxide (22-29) mmol/L Anion Gap (5-19) BUN (6-20) mg/dL Creatinine (0.5-0.9) mg/dL GFR Calculation (90-130) mL/min Glucose (65-115) mg/dL Calculated Osmolal ity (285-295) mOsm/k g Calcium (8.5-10.5) mg/dL Total Bilirubin (0.15-1.2) mg/dL AST (0-32) U/L ALT (0-33) U/L Alkaline Phosphata se (35-105) IU/L Total Protein (6.6-8.7) g/dL Albumin (3.5-5.2) g/dL Globulin (1.3-4.6) g/dL Lipase (13-60) U/L HCG, Qual (Negative) Urine Color Yellow (Yellow) Urine Appearance Clear (CLEAR) Urine pH 8.0 H (5-7) Ur Specific Gravit y 1.015 (1.005-1.030) Urine Protein Neg (Negative) Urine Glucose (UA) Norm (Normal) Urine Ketones Negative (Negative) Urine Blood Neg (Negative) Urine Nitrate Negative (Negative) Urine Bilirubin Neg (Negative) Urine Urobilinogen Norm (Negative) mg/dL Ur Leukocyte Ella ase Negative (Negative) Discharge Plan Discharge Patient Disposition: Home Clinical Impression: Abdominal pain Qualifiers: Abdominal location: right lower quadrant Qualified Code(s): R10.31 - Right lower quadrant pain Condition: Stable Prescriptions: No Action colestipol [Colestid] 1 gram tablet 1 gm PO DAILY RF: 0 ibuprofen 600 mg tablet 600 mg PO Q8H PRNRF: 0 Midol 500-25 mg tablet 1 tab PO Q6H PRNRF: 0 norethindrone ac-eth estradiol [Microgestin 11/28 ()] 1-20 mg-mcg tablet 1 tab PO DAILY Qty: 84 RF: 0 etonogestrel-ethinyl estradiol [NuvaRing] 0.12-0.015 mg/24 hr ring 1 vag ring VAGINAL Q21D RF: 0 sertraline 50 mg tablet 50 mg PO DAILY RF: 0 Discharge Orders: Discharge Order (Routine); Ordered 09/21/20 Ordered By: Tracy Ventura Referrals: Jeannie Valladares MD [Primary Care Provider] - 1-3 days Patient Instructions: Abdominal Pain (ED) Activity Restrictions/Additional Instructions: Please return to the ER immediately for any of the signs or symptoms listed on your discharge instruction sheets, worsening/changing of your symptoms, you are not getting better as quickly as expected, or for ANY other cause or concerns. Return to the ER sooner if your pain worsens, he develop a fever, he began to vomit, or you have any other concerns. You have declined a ultrasound to rule out gynecologic causes for your pain but if you change your mind you are more than welcome to return for further evaluation. If your pain persists more than another 8 to 12 hours return to the ER for recheck as developing appendicitis still could be a cause for your pain. Coding Level of Care Code ED Compliance Officer for Chg Fwd Exam Comprehensive
[2020-09-21 00:11] LABS: Basophils # 0.1 10^3/uL (0.0-0.1); Basophils % 0.6 %; Eosinophils # 0.2 10^3/uL (0.0-0.8); Hematocrit 40.1 % (37.0-47.0); Hemoglobin 13.6 g/dL (11.5-15.3); Lymphocytes # 3.3 10^3/uL (1.5-6.5); Lymphocytes % 37.9 %; Mean Corpuscular HGB Conc 33.9 g/dL (30.0-36.0); Mean Corpuscular Volume 88.3 fL (81-99); Mean Platelet Volume 10.6 fL (7.4-10.4); Monocytes # 0.6 10^3/uL (0.2-0.9); Monocytes % 6.6 %; Neutrophils # 4.65 10^3/uL (1.8-8.0); Neutrophils % 52.8 %; Nucleated Red Blood Cells % 0 %; Platelet Count 328 10^3/cmm (130-400); Red Blood Count 4.54 10^6/uL (4.1-5.3); Red Cell Distribution Width 12.3 % (12.1-15.1); White Blood Count 8.8 10^3/uL (4.5-13.0)
[2020-09-21] MEDS: ondansetron 2 mg/ML SDV 2 mL 4 MG IVP ×2 (00:24→02:18)
[2020-09-21] MEDS: sodium chloride 0.9% 1,000 ML 999 ML IV (00:24)
[2020-09-21] MEDS: morphine 4 mg/mL SDV 1 mL IVP ×2 (00:25→02:18)
[2020-09-21 00:34] LABS: HCG, Serum Qual Negative (Negative)
[2020-09-21 00:34] LABS: Add Urine Microscopic? NO
[2020-09-21 00:44] LABS: Alanine Aminotransferase 8 U/L (0-33); Albumin Level 4.5 g/dL (3.5-5.2); Alkaline Phosphatase 61 IU/L (35-105); Aspartate Amino Transferase 13 U/L (0-32); Blood Urea Nitrogen 6 mg/dL (6-20); Calcium 9.9 mg/dL (8.5-10.5); Carbon Dioxide 24 mmol/L (22-29); Chloride 104 mmol/L (98-107); Globulin 2.8 g/dL (1.3-4.6); Glomerular Filtration Rate 157.3 mL/min (90-130); Glucose 110 mg/dL (65-115); Lipase 45 U/L (13-60); Osmolality Calculated 284 mOsm/kg (285-295); Sodium 138 mmol/L (136-145); Total Bilirubin 0.2 mg/dL (0.15-1.2); Total Protein 7.3 g/dL (6.6-8.7)
[2020-09-21 00:52] LABS: Urine Appearance Clear (CLEAR); Urine Color Yellow (Yellow)
[2020-09-21 00:53] LABS: Bilirubin Urine Neg (Negative); Blood Urine Neg (Negative); Glucose Urine UA Norm (Normal); Ketones Urine Negative (Negative); Leukocyte Esterase Urine Negative (Negative); Nitrate Urine Negative (Negative); Protein Urine Neg (Negative); Specific Gravity, Urine 1.015 (1.005-1.030); Urobilinogen Urine Norm (Negative)
[2020-09-21] MEDS: iohexol 300 mg/mL 100 mL Btl IV (01:11)
[2020-09-21] MEDS: lidocaine 2% viscous 15 ML, aluminum-mag hydrox-simethicon 30 ML, sucralfate oral liq 1 GM PO (02:17)
== END 2020-09-21 03:10 | disposition home or self-care (01) ==
PROVIDERS: Emergency Provider Emergency Medicine; PCP Internal Medicine
DX: R10.31 Right lower quadrant pain (principal); F17.290 Nicotine dependence, other tobacco product, uncomplicated
CPT/HCPCS: 12345; 74177; 80053; 81003; 83690; 84703; 85025; 96361; 96374; 96375; 96376; 99283; J2270; J2405; J7030; Q9967

== ENCOUNTER → 2020-11-20 13:19 | Outpatient (BNVA) | payer MEDICAID, SELFPAY | PROVIDERS: PCP Internal Medicine; Visit Provider Obstetrics & Gynecology | DX: N94.6 Dysmenorrhea, unspecified (principal); R10.31 Right lower quadrant pain; N80.9 Endometriosis, unspecified | CPT/HCPCS: 81025 ==

== ENCOUNTER 2020-11-28 09:21 | Emergency (ER) | payer SELFPAY ==
[2020-11-28 09:26] VITALS: BP 148/98; PULSE 83; RESP 18; TEMP 36.5; O2SAT 98; BMI 21.2
[2020-11-28 09:41] VITALS: O2SAT 94
--- NOTE | 2020-11-28 10:29 | ED_ITS ---
HPI - Nausea/Vomiting/Diarrhea General: Chief complaint: Nausea/Vomiting/Diarrhea Stated complaint: POSS REOCCURENCE OF CDIF Time Seen by Provider: 11/28/20 09:31 Source: patient History of Present Illness: HPI Narrative: Patient is a well-appearing 20-year-old female seen for abdominal pain and diarrhea. She was diagnosed with C. difficile in July 2020 for which she was given a 14-day course of oral vancomycin. Since that time, she has had multiple bouts of diarrhea, sometimes with blood, sometimes not, but never with the foul odor or the inability to control her bowels as she did this morning. She states that she did not realize she was soiling herself until it was dripping down her leg. The smell and the abdominal pain are reminiscent of when she was diagnosed with C. difficile in July of last year. She denies fever and vomiting, however she does endorse nausea. She has had multiple abdominal symptoms over the years with thorough work-up including upper and lower scopes and a multitude of testing with no clear evidence of IBS, Crohn's, or other identified diagnoses. She currently takes no medications for her intermittent abdominal pain and nausea. She is concerned she may be , though she was tested roughly a week ago and test was negative. She is most concerned that she has had a recurrence of C. difficile. She has no other acute complaints. Review of Systems General: Reports: 10 or more systems reviewed and unremarkable except in HPI and below PFSH ED PFSH: Medical History (Updated 11/28/20 @ 15:10 by Jordan Arteaga MD) Depression And anxiety diagnosed in 2019 and controlled with medication managed by primary care provider No pertinent past medical history Denies diabetes, asthma, hypertension, seizures, DVT/PE PMD: Dr. Zita Valladares Surgical History History of colonoscopy (~2019) History of esophagogastroduodenoscopy (EGD) (03/19/20) History of tonsillectomy Status post laparoscopic cholecystectomy (03/19/20) Performed by Dr. Juarez at [facility] [place] Family History Family/Other Adopted Patient was adopted and does not know her biological family history Social History Smoking and tobacco status: current some day smoker e-cigarettes E-Cigarette Details: vaporizer device Alcohol intake: never Adopted: Yes Current occupational status: employed History of recent travel: No Sexually active: Yes Female Reproductive History: Date of last menstrual period: 10/21/20 Physical Exam Const: COMMON NORMALS: no acute distress, patient oriented x3 and alert HENMT: COMMON NORMALS: normocephalic and atraumatic HEAD & SCALP: normocephalic and atraumatic Eye: COMMON NORMALS: Equal, round and reactive pupils present, EOMs intact bilaterally and no scleral icterus PUPIL: Yes Equal, round and reactive pupils present Resp: COMMON NORMALS: normal respiratory effort and No retractions Cardio: COMMON NORMALS: regular rate, regular rhythm and No murmurs present (Cardio) RATE: regular rate RHYTHM: regular rhythm GI: COMMON NORMALS: Normal to inspection, nondistended, normoactive bowel sounds present and Soft to palpation PALPATION: Yes Soft to palpation OTHER: Minimal tenderness in the right upper quadrant. Otherwise normal abdominal exam. Neuro: COMMON NORMALS: patient oriented x3 SENSORIUM/ORIENTATION: Yes alert Skin: COMMON NORMALS: no rashes or lesions noted GENERAL SKIN EXAM: no rashes or lesions noted Course Vital Signs: Vital signs: Vital Signs Temperature 97.7 F 11/28/20 09:26 Pulse Rate 67 11/28/20 13:07 Respiratory Rate 18 11/28/20 09:26 Blood Pressure 106/64 11/28/20 13:07 Pulse Oximetry 98 11/28/20 13:07 MDM - Nausea/Vomiting/Diarrhea MDM Narrative: Medical decision making narrative: Patient remained hemodynamically stable throughout ED course. Headache is much better with IV fluids, Benadryl, Reglan. Laboratory evaluation is noncontributory. C. difficile testing is running at the time of disposition. She would like to return home. She was advised that we will call her in a prescription for antibiotics should the test be positive. If it does not, she understands to advance diet as tolerated. She is afebrile with no laboratory abnormalities worrisome for other infection. She will be discharged in stable and improved condition. Lab Data: Labs: Lab Results 11/28/20 11/28/20 11/28/20 Range/Units 10:40 10:40 11:54 WBC 7.1 (4.0-10.0) 10^3/ uL RBC 4.86 (4.1-5.3) 10^6/u L Hgb 14.3 (11.5-15.3) g/dL Hct 42.6 (37.0-47.0) % MCV 87.7 (81-99) fL MCH 29.4 (28.0-34.0) pg MCHC 33.6 (30.0-36.0) g/dL RDW 12.2 (12.1-15.1) % Plt Count 296 (130-400) 10^3/c mm MPV 10.5 H (7.4-10.4) fL Neut % (Auto) 64.0 % Lymph % (Auto) 28.0 % [place] % (Auto) 4.9 % Eos % (Auto) 2.3 % Baso % (Auto) 0.7 % Neut # (Auto) 4.53 (1.8-7.7) 10^3/u L Lymph # (Auto) 2.0 (0.8-4.8) 10^3/u L [place] # (Auto) 0.4 (0.2-0.9) 10^3/u L Eos # (Auto) 0.2 (0.0-0.8) 10^3/u L Baso # (Auto) 0.1 (0.0-0.1) 10^3/u L Nucleated RBC % (a uto) 0 % Nucleated RBCs # 0.0 /100WBC Sodium 138 (136-145) mmol/L Potassium 3.9 (3.5-5.1) mmol/L Chloride 104 (98-107) mmol/L Carbon Dioxide 24 (22-29) mmol/L Anion Gap 13.9 (5-19) BUN 7 (6-20) mg/dL Creatinine 0.6 (0.5-0.9) mg/dL GFR Calculation 126.2 (90-130) mL/min Glucose 95 (65-115) mg/dL Calculated Osmolal ity 284 L (285-295) mOsm/k g Calcium 9.4 (8.5-10.5) mg/dL Total Bilirubin 0.4 (0.15-1.2) mg/dL AST 12 (0-32) U/L ALT 7 (0-33) U/L Alkaline Phosphata se 58 (35-105) IU/L Total Protein 7.4 (6.6-8.7) g/dL Albumin 4.2 (3.5-5.2) g/dL Globulin 3.2 (1.3-4.6) g/dL HCG, Qual Negative (Negative) Urine Color (Yellow) Urine Appearance (CLEAR) Urine pH (5-7) Ur Specific Gravit y (1.005-1.030) Urine Protein (Negative) Urine Glucose (UA) (Normal) Urine Ketones (Negative) Urine Blood (Negative) Urine Nitrate (Negative) Urine Bilirubin (Negative) Urine Urobilinogen (Negative) mg/dL Ur Leukocyte Ella ase (Negative) 11/28/20 Range/Units 11:54 WBC (4.0-10.0) 10^3/ uL RBC (4.1-5.3) 10^6/u L Hgb (11.5-15.3) g/dL Hct (37.0-47.0) % MCV (81-99) fL MCH (28.0-34.0) pg MCHC (30.0-36.0) g/dL RDW (12.1-15.1) % Plt Count (130-400) 10^3/c mm MPV (7.4-10.4) fL Neut % (Auto) % Lymph % (Auto) % [place] % (Auto) % Eos % (Auto) % Baso % (Auto) % Neut # (Auto) (1.8-7.7) 10^3/u L Lymph # (Auto) (0.8-4.8) 10^3/u L [place] # (Auto) (0.2-0.9) 10^3/u L Eos # (Auto) (0.0-0.8) 10^3/u L Baso # (Auto) (0.0-0.1) 10^3/u L Nucleated RBC % (a uto) % Nucleated RBCs # /100WBC Sodium (136-145) mmol/L Potassium (3.5-5.1) mmol/L Chloride (98-107) mmol/L Carbon Dioxide (22-29) mmol/L Anion Gap (5-19) BUN (6-20) mg/dL Creatinine (0.5-0.9) mg/dL GFR Calculation (90-130) mL/min Glucose (65-115) mg/dL Calculated Osmolal ity (285-295) mOsm/k g Calcium (8.5-10.5) mg/dL Total Bilirubin (0.15-1.2) mg/dL AST (0-32) U/L ALT (0-33) U/L Alkaline Phosphata se (35-105) IU/L Total Protein (6.6-8.7) g/dL Albumin (3.5-5.2) g/dL Globulin (1.3-4.6) g/dL HCG, Qual (Negative) Urine Color Straw (Yellow) Urine Appearance Clear (CLEAR) Urine pH 6.5 (5-7) Ur Specific Gravit y 1.005 (1.005-1.030) Urine Protein Neg (Negative) Urine Glucose (UA) Norm (Normal) Urine Ketones Negative (Negative) Urine Blood Neg (Negative) Urine Nitrate Negative (Negative) Urine Bilirubin Neg (Negative) Urine Urobilinogen Norm (Negative) mg/dL Ur Leukocyte Ella ase Negative (Negative) Discharge Plan Discharge Patient Disposition: Home Clinical Impression: Diarrhea Condition: Stable Prescriptions: No Action ibuprofen 600 mg tablet 600 mg PO Q8H PRN (Reason: Pain) RF: 0 colestipol [Colestid] 1 gram tablet 1 gm PO DAILY PRN (Reason: Diarrhea) RF: 0 fluoxetine 20 mg capsule 20 mg PO DAILY@2200 RF: 0 Zofran 4 mg Tablet 4 mg PO Q6H PRN (Reason: Nausea) RF: 0 Microgestin 11/28 () 1-20 mg-mcg tablet 1 tab PO DAILY@2200 RF: 0 Discharge Orders: Discharge ED (Routine); Ordered 11/28/20 Ordered By: Jordan Arteaga Referrals: Jeannie Valladares MD [Primary Care Provider] - Discharge Diet: Advance as tolerated Discharge Activity: Resume usual activity Activity Restrictions/Additional Instructions: At this time, we are waiting for your C. difficile test to return. If it is positive, I will call in a prescription for antibiotics. If it is negative, hopefully your diarrhea resolves spontaneously. Please have no hesitation to return to the emergency department if you have further symptoms or concerns. Coding Level of Care Code ED Emergency Operator for Young Arvizu Exam Detailed
[2020-11-28 10:46] VITALS: PULSE 69; O2SAT 98
[2020-11-28 10:55] LABS: Basophils # 0.1 10^3/uL (0.0-0.1); Basophils % 0.7 %; Eosinophils # 0.2 10^3/uL (0.0-0.8); Eosinophils % 2.3 %; Hematocrit 42.6 % (37.0-47.0); Hemoglobin 14.3 g/dL (11.5-15.3); Mean Corpuscular HGB Conc 33.6 g/dL (30.0-36.0); Mean Corpuscular Hemoglobin 29.4 pg (28.0-34.0); Mean Corpuscular Volume 87.7 fL (81-99); Mean Platelet Volume 10.5 fL (7.4-10.4); Monocytes # 0.4 10^3/uL (0.2-0.9); Monocytes % 4.9 %; Neutrophils # 4.53 10^3/uL (1.8-7.7); Nucleated Red Blood Cells % 0 %; Platelet Count 296 10^3/cmm (130-400); Red Blood Count 4.86 10^6/uL (4.1-5.3); Red Cell Distribution Width 12.2 % (12.1-15.1); White Blood Count 7.1 10^3/uL (4.0-10.0)
[2020-11-28] MEDS: metoclopramide 5 mg/mL SDV 2 mL 10 MG IVP (10:56)
[2020-11-28] MEDS: lactated ringers 1,000 ML 999 ML IV (10:56)
[2020-11-28] MEDS: diphenhydrAMINE 50 mg/mL SDV 1mL IVP (10:57)
[2020-11-28 11:13] LABS: Alanine Aminotransferase 7 U/L (0-33); Albumin Level 4.2 g/dL (3.5-5.2); Alkaline Phosphatase 58 IU/L (35-105); Anion Gap 13.9 (5-19); Aspartate Amino Transferase 12 U/L (0-32); Blood Urea Nitrogen 7 mg/dL (6-20); Calcium 9.4 mg/dL (8.5-10.5); Carbon Dioxide 24 mmol/L (22-29); Chloride 104 mmol/L (98-107); Globulin 3.2 g/dL (1.3-4.6); Glomerular Filtration Rate 126.2 mL/min (90-130); Glucose 95 mg/dL (65-115); Osmolality Calculated 284 mOsm/kg (285-295); Potassium 3.9 mmol/L (3.5-5.1); Sodium 138 mmol/L (136-145); Total Bilirubin 0.4 mg/dL (0.15-1.2); Total Protein 7.4 g/dL (6.6-8.7)
[2020-11-28 11:58] VITALS: BP 110/67; PULSE 63; O2SAT 97
[2020-11-28 12:02] LABS: Add Urine Microscopic? NO
[2020-11-28 12:06] LABS: Bilirubin Urine Neg (Negative); Blood Urine Neg (Negative); Glucose Urine UA Norm (Normal); HCG Qualitative Urine. Negative (Negative); Ketones Urine Negative (Negative); Leukocyte Esterase Urine Negative (Negative); Nitrate Urine Negative (Negative); Protein Urine Neg (Negative); Specific Gravity, Urine 1.005 (1.005-1.030); Urine Appearance Clear (CLEAR); Urine Color Straw (Yellow); Urobilinogen Urine Norm (Negative); pH Urine 6.5 (5-7)
[2020-11-28 13:07] VITALS: BP 106/64; PULSE 67; O2SAT 98
[2020-11-28 15:15] VITALS: BP 98/62; PULSE 61; O2SAT 98
== END 2020-11-28 15:21 | disposition home or self-care (01) ==
PROVIDERS: Emergency Provider Student in an Organized Health Care Education/Training Program; PCP Internal Medicine
DX: R19.7 Diarrhea, unspecified (principal); F17.290 Nicotine dependence, other tobacco product, uncomplicated
CPT/HCPCS: 12345; 80053; 81003; 81025; 82274; 83630; 85025; 87493; 87506; 96361; 96374; 96375; 99283; J1200; J2765

== ENCOUNTER 2021-01-15 20:00 | Outpatient (CLI) | payer SELFPAY | END 2021-01-15 20:01 | disposition home or self-care (01) | LOC: SLEEP 01-16 08:37 | PROVIDERS: PCP Internal Medicine; Visit Provider Nurse Practitioner Family | DX: G47.10 Hypersomnia, unspecified (principal); R06.83 Snoring; R53.83 Other fatigue | CPT/HCPCS: 95810 ==

== ENCOUNTER 2021-11-23 05:31 | Emergency (ER) | payer BC, SELFPAY ==
[2021-11-23 05:39] VITALS: BP 113/78; PULSE 137; RESP 18; TEMP 36.5; O2SAT 98; BMI 21.5
--- NOTE | 2021-11-23 06:02 | ECG_ITS ---
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: : 2000 Requested By: Myke Cline Order Number: [id number] Gabrielle MD: MOLLY ISIDRO Measurements Intervals [place] Rate: 105 P: 50 TX: 123 QRS: 41 QRSD: 88 T: -7 QT: 329 QTc: 435 Interpretive Statements SINUS TACHYCARDIA POSSIBLE LEFT ATRIAL ENLARGEMENT [-0.1mV P-WAVE IN V1/V2] NONSPECIFIC ST & T-WAVE ABNORMALITY ABNORMAL RHYTHM ECG Compared to ECG 07/28/2020 10:00:02 T-wave abnormality now present Sinus rhythm no longer present Sinus arrhythmia no longer present Electronically Signed On 11-23-2021 19:56:49 SCREEN OPERATOR by MOLLY ISIDRO [id number]
--- NOTE | 2021-11-23 06:10 | W.ED.GENADLT ---
HPI - General Adult General: Chief complaint: General Medical Stated complaint: joint pain Time Seen by Provider: 11/23/21 05:42 History of Present Illness: HPI narrative: 21-year-old female presents emergency room complaining of systemic joint pain. She was recently hospitalized at [facility] with an optic neuritis and received IV Solu-Medrol for several days and arrival. She was discharged home and is on prednisone taper and is now developed systemic joint pain particularly in her larger joints that began yesterday.. She denies any fever sweats chills rash. She not had any cough or shortness of breath no significant abdominal pain at this time. She did come in last night was in the waiting room for a time and left without being seen at that time her complaint was abdominal pain which she said after she went home and threw up she no longer has the pain. She denies any medic easy melena hematemesis coffee-ground emesis dysuria urgency or frequency. Onset (ago): hour(s) Location: left, right, upper extremity and lower extremity Severity: severe Quality: aching Pain Consistency: constant Relieving factors: none Exacerbating factors: none Associated symptoms: Reports decreased appetite, nausea, vomiting and weakness; Deny chest pain, confusion, cough, diaphoresis, dyspnea, fevers/chills, headache(s), malaise, rash, palpitations, seizures, short of breath or syncope Treatments prior to arrival: none Review of Systems Const: Denies: malaise or diaphoresis ENMT: Denies: throat pain, ear or mastoid pain, nasal discharge or nasal congestion Card: Denies: chest pain, palpitations or syncope Resp: Denies: dyspnea GI: Reports: nausea and vomiting : Denies: flank pain, difficulty voiding, dysuria, urinary frequency or urinary urgency Skin/Breast: Denies: rash Neuro: Denies: headache(s) or confusion [facility] ED PFSH: Medical History (Updated 11/23/21 @ 07:15 by Myke Zimmerman DO) Depression And anxiety diagnosed in 2019 and controlled with medication managed by primary care provider No pertinent past medical history Denies diabetes, asthma, hypertension, seizures, DVT/PE PMD: Dr. Zita Valladares Surgical History History of colonoscopy (~2019) History of esophagogastroduodenoscopy (EGD) (03/19/20) History of tonsillectomy Status post laparoscopic cholecystectomy (03/19/20) [place] [facility] [place] Family/Other Adopted Patient was adopted and does not know her biological family history Social History Smoking and tobacco status: current some day smoker e-cigarettes E-Cigarette Details: vaporizer device Alcohol intake: never Adopted: Yes Current occupational status: employed History of recent travel: No Sexually active: Yes Female Reproductive History: Date of last menstrual period: 11/09/21 Physical Exam Const: COMMON NORMALS: no acute distress GENERAL APPEARANCE: cooperative and comfortable ORIENTATION/CONSCIOUSNESS: Yes awake, Yes oriented to person, Yes oriented to place and Yes oriented to time HENMT: COMMON NORMALS: normocephalic, atraumatic and hearing grossly normal bilaterally HEAD & SCALP: normocephalic and atraumatic Eye: COMMON NORMALS: Equal, round and reactive pupils present, EOMs intact bilaterally, conjunctivae normal and no scleral icterus CONJUNCTIVA: Yes conjunctivae normal PUPIL: Yes Equal, round and reactive pupils present Neck/C-Spine: COMMON NORMALS: no JVD Lymph: LYMPHATIC: no lymphadenopathy noted and no lymphedema noted Resp: COMMON NORMALS: normal respiratory effort, No retractions, No use of accessory muscles and clear to auscultation bilaterally AUSCULTATION: clear to auscultation bilaterally Cardio: COMMON NORMALS: no JVD, regular rate, regular rhythm and No murmurs present (Cardio) RATE: regular rate RHYTHM: regular rhythm GI: COMMON NORMALS: Soft to palpation and No hepatosplenomegaly present AUSCULTATION: Yes normoactive bowel sounds PALPATION: Yes Soft to palpation, No Tenderness to palpation present (GI), No Guarding due to palpation present (GI) and Yes No hepatosplenomegaly present Extremity: OTHER: Mild joint effusions at the wrist elbows and knees. Neuro: SENSORIUM/ORIENTATION: Yes oriented to person, Yes oriented to place and Yes oriented to time Skin: COMMON NORMALS: no rashes or lesions noted GENERAL SKIN EXAM: no rashes or lesions noted Course Vital Signs: Vital signs: Vital Signs Temperature 97.7 F 11/23/21 05:39 Pulse Rate 103 H 11/23/21 07:41 Respiratory Rate 18 11/23/21 07:41 Blood Pressure 139/79 11/23/21 07:41 Pulse Oximetry 98 11/23/21 07:41 MDM - General Adult MDM Narrative: Medical decision making narrative: Increase your prednisone. Initially it was an increase to 40 twice daily of the list that is 20 mg twice daily in the medicine list however when the nurse was talking the patient she is already been taking 40 twice daily you increased it to 60 twice daily and wrote out the taper. 60 twice daily x3 days 40 twice daily x2 days 40 daily x2 days and then 20 daily. Follow-up with her primary care doctor worsening or change symptoms return. We will also screen for COVID. Lab Data: Labs: Lab Results 11/23/21 11/23/21 06:20 06:20 WBC 16.3 10^3/uL H 10 ^3/uL (4.0-10.0) RBC 4.92 10^6/uL 10^6 /uL (4.1-5.3) Hgb 14.5 g/dL g/dL (11.5-15.3) Hct 43.8 % % (37.0-47.0) MCV 89.0 fl fl (81-99) MCH 29.5 pg pg (28.0-34.0) MCHC 33.1 g/dL g/dL (30.0-36.0) RDW 12.4 % % (12.1-15.1) Plt Count 299 10^3/cmm 10^3 /cmm (130-400) MPV 9.4 fL fL (7.4-10.4) Neut % (Auto) 70.1 % % Lymph % (Auto) 17.9 % % [place] % (Auto) 8.9 % % Eos % (Auto) 0.1 % % Baso % (Auto) 0.2 % % Neut # (Auto) 11.44 10^3/uL H 1 0^3/uL (1.8-7.7) Lymph # (Auto) 2.9 10^3/uL 10^3/ uL (0.8-4.8) [place] # (Auto) 1.5 10^3/uL H 10^ 3/uL (0.2-0.9) Eos # (Auto) 0.0 10^3/uL 10^3/ uL (0.0-0.8) Baso # (Auto) 0.0 10^3/uL 10^3/ uL (0.0-0.1) Nucleated RBC % (a uto) 0 % % Nucleated RBCs # 0.0 /100WBC /100W BC ESR < 1 mm/hr mm/hr (0-15) Sodium 138 mmol/L mmol/L (136-145) Potassium 3.5 mmol/L mmol/L (3.5-5.1) Chloride 101 mmol/L mmol/L (98-107) Carbon Dioxide 22 mmol/L mmol/L (22-29) Anion Gap 18.5 (5-19) BUN 16 mg/dL mg/dL (6-20) Creatinine 0.5 mg/dL mg/dL (0.5-0.9) GFR Calculation 154.3 mL/min H mL /min (90-130) Glucose 95 mg/dL mg/dL (65-115) Calculated Osmolal ity 287 mOsm/kg mOsm/ kg (285-295) Calcium 8.1 mg/dL L mg/dL (8.5-10.5) Total Bilirubin 0.3 mg/dL mg/dL (0.15-1.2) AST 15 U/L U/L (0-32) ALT 28 U/L U/L (0-33) Alkaline Phosphata se 100 IU/L IU/L (35-105) Creatine Kinase 22 U/L L U/L (26-192) C-Reactive Protein 0.3 mg/L mg/L (0.0-4.9) Total Protein 5.8 g/dL L g/dL (6.6-8.7) Albumin 3.7 g/dL g/dL (3.5-5.2) Globulin 2.1 g/dL g/dL (1.3-4.6) Discharge Plan Discharge Patient Disposition: Home Clinical Impression: Arthralgia Condition: Stable Prescriptions: New prednisone 20 mg tablet 20 mg PO BID 7 Days Qty: 25 RF: 0 No Action ibuprofen 600 mg tablet 600 mg PO Q8H PRN (Reason: Pain) RF: 0 colestipol [Colestid] 1 gram tablet 1 gm PO DAILY PRN (Reason: Diarrhea) RF: 0 fluoxetine 20 mg capsule 20 mg PO DAILY@2200 RF: 0 Zofran 4 mg Tablet 4 mg PO Q6H PRN (Reason: Nausea) RF: 0 Microgestin 11/28 (21) 1-20 mg-mcg tablet 1 tab PO DAILY@2200 RF: 0 Discharge Orders: Discharge ED (Routine); Ordered 11/23/21 Ordered By: Myke Zimmerman Referrals: Jeannie Valladares MD [Primary Care Provider] - Patient Instructions: Opioid Safety Activity Restrictions/Additional Instructions: Increase the prednisone taper as per prescription. Follow-up with your primary care doctor early next week. Coding Level of Care Code ED Digital Advertising Specialist for Young Fwd Exam Comprehensive
[2021-11-23 06:37] VITALS: PULSE 120
[2021-11-23 06:38] LABS: Basophils % 0.2 %; Eosinophils % 0.1 %; Hematocrit 43.8 % (37.0-47.0); Hemoglobin 14.5 g/dL (11.5-15.3); Lymphocytes # 2.9 10^3/uL (0.8-4.8); Lymphocytes % 17.9 %; Mean Corpuscular HGB Conc 33.1 g/dL (30.0-36.0); Mean Corpuscular Hemoglobin 29.5 pg (28.0-34.0); Mean Platelet Volume 9.4 fL (7.4-10.4); Monocytes # 1.5 10^3/uL (0.2-0.9); Monocytes % 8.9 %; Neutrophils # 11.44 10^3/uL (1.8-7.7); Neutrophils % 70.1 %; Nucleated Red Blood Cells % 0 %; Platelet Count 299 10^3/cmm (130-400); Red Blood Count 4.92 10^6/uL (4.1-5.3); Red Cell Distribution Width 12.4 % (12.1-15.1); White Blood Count 16.3 10^3/uL (4.0-10.0)
[2021-11-23 06:42] VITALS: PULSE 113; RESP 18; O2SAT 98
[2021-11-23 06:52] LABS: Erythrocyte Sedimentation Rate < 1 mm/hr (0-15)
[2021-11-23 06:56] LABS: Alanine Aminotransferase 28 U/L (0-33); Albumin Level 3.7 g/dL (3.5-5.2); Alkaline Phosphatase 100 IU/L (35-105); Anion Gap 18.5 (5-19); Aspartate Amino Transferase 15 U/L (0-32); Blood Urea Nitrogen 16 mg/dL (6-20); C Reactive Protein 0.3 mg/L (0.0-4.9); Calcium 8.1 mg/dL (8.5-10.5); Carbon Dioxide 22 mmol/L (22-29); Chloride 101 mmol/L (98-107); Creatine Phosphokinase 22 U/L (26-192); Globulin 2.1 g/dL (1.3-4.6); Glomerular Filtration Rate 154.3 mL/min (90-130); Glucose 95 mg/dL (65-115); Osmolality Calculated 287 mOsm/kg (285-295); Potassium 3.5 mmol/L (3.5-5.1); Sodium 138 mmol/L (136-145); Total Bilirubin 0.3 mg/dL (0.15-1.2); Total Protein 5.8 g/dL (6.6-8.7)
[2021-11-23] MEDS: ketorolac 30 mg/mL INJ IVP (06:59)
[2021-11-23] MEDS: acetaminophen 1,000 MG/100 ML PIGGYBACK 400 MG IV (07:05)
[2021-11-23 07:41] VITALS: BP 139/79; PULSE 103; RESP 18; O2SAT 98
[2021-11-23 08:30] LABS: Adenovirus Not Detected (NOT DETECT); Chlamydia Pneumoniae Not Detected (NOT DETECT); Coronavirus 229E,HKU1,NL63,OC4 Not Detected (NOT DETECT); Human Metapneumovirus Not Detected (NOT DETECT); Human Rhinovirus/Enterovirus Not Detected (NOT DETECT); Influenza A Not Detected (NOT DETECT); Influenza A H1 Not Detected (NOT DETECT); Influenza A H1-2009 Not Detected (NOT DETECT); Influenza A H3 Not Detected (NOT DETECT); Influenza B Not Detected (NOT DETECT); Mycoplasma Pneumoniae Not Detected (NOT DETECT); Parainfluenza Virus Type 1 Not Detected (NOT DETECT); Parainfluenza Virus Type 2 Not Detected (NOT DETECT); Parainfluenza Virus Type 3 Not Detected (NOT DETECT); Parainfluenza Virus Type 4 Not Detected (NOT DETECT); Respiratory Syncytial Virus A Not Detected (NOT DETECT); Respiratory Syncytial Virus B Not Detected (NOT DETECT); SARS-COV-2 Detected (NOT DETECT)
== END 2021-11-23 07:42 | disposition home or self-care (01) ==
PROVIDERS: Emergency Provider Family Medicine; PCP Internal Medicine
DX: M25.50 Pain in unspecified joint (principal); F17.290 Nicotine dependence, other tobacco product, uncomplicated; Z20.822 Contact with and (suspected) exposure to COVID-19
CPT/HCPCS: 80053; 82550; 85025; 85651; 86140; 87635; 93005; 96374; 96375; 99284; J1885; J2930

== ENCOUNTER 2021-11-24 20:53 | Emergency (ER) | payer BC, SELFPAY ==
--- NOTE | 2021-11-24 20:55 | ECG_ITS ---
[facility] Test Date: 2021-11-24 Pat Name: Gay Del Cid Department: Room: Gender: Female Parts Expediter: : 2000 Requested By: Warren Boyer Order Number: [id number] Gabrielle MD: MOLLY ISIDRO Measurements Intervals [place] Rate: 120 P: 74 MS: 120 QRS: 84 QRSD: 81 T: 45 QT: 295 QTc: 418 Interpretive Statements SINUS TACHYCARDIA POSSIBLE RIGHT VENTRICULAR CONDUCTION DELAY [RSR (QR) IN V1/V2] MINIMAL ST DEPRESSION [0.025+ mV ST DEPRESSION] ABNORMAL RHYTHM ECG Compared to ECG 11/23/2021 06:26:17 ST (T wave) deviation now present T-wave abnormality no longer present Electronically Signed On 11-25-2021 20:54:22 ACCOUNT OFFICER by MOLLY ISIDRO [id number]
[2021-11-24 21:09] VITALS: BP 115/73; PULSE 121; RESP 18; TEMP 36.8; O2SAT 97; BMI 23.3
--- NOTE | 2021-11-24 21:29 | ED_ITS ---
HPI - Chest Pain General: Chief Complaint: Chest Pain Stated Complaint: heart rate 160-170 chest pressure Time Seen by Provider: 11/24/21 21:16 Source: patient and family Mode of arrival: ambulatory Limitations: no limitations History of Present Illness: HPI narrative: Patient with complaints of chest discomfort and palpitations today. Patient states that she has been recently treated for optic neuritis. She states she has required IV transfusions up to a gram a day of Solu-Medrol. She was then discharged on large dose of prednisone daily. She is supposed to be on the prednisone for approximately 8 weeks. She was recently seen in the emergency room yesterday and placed on higher dose of prednisone 140 mg daily for joint pain. She started palpitations and chest pain this morning. MD complaint: chest pain Timing of current episode: episodic Prior episodes: No Onset: during rest Pain location: parasternal Pain radiation: none Severity: mild Quality: aching Relieving factors: nothing Exacerbating factors: nothing Associated symptoms: Reports abdominal pain (Mild epigastric), palpitations and other (Mild epigastric pain); Deny dyspnea, fever(s), nausea or vomiting Treatment prior to arrival: other (Patient presently on 140 mg of prednisone daily, Carafate, Protonix.) Review of Systems Const: Denies: fever(s) or chills Eyes: Denies: change in vision ENMT: Denies: throat pain Card: Reports: chest pain, palpitations, irregular heart rhythm and other (Tachycardia) Resp: Denies: dyspnea or wheezing GI: Reports: abdominal pain (Mild epigastric); Denies: nausea or vomiting : Denies: flank pain Musc: Denies: neck pain or back pain Skin/Breast: Denies: rash or pruritus Neuro: Denies: headache(s) or numbness in extremities Psych: Denies: anxiety Miguel/Lymph: Denies: enlarged lymph nodes PFSH ED PFSH: Medical History Depression And anxiety diagnosed in 2019 and controlled with medication managed by primary care provider No pertinent past medical history Denies diabetes, asthma, hypertension, seizures, DVT/PE PMD: Dr. Zita Valladares Surgical History History of colonoscopy (~2019) History of esophagogastroduodenoscopy (EGD) (03/19/20) History of tonsillectomy Status post laparoscopic cholecystectomy (03/19/20) Performed by Dr. Juarez at [facility] [place] Family History Family/Other Adopted Patient was adopted and does not know her biological family history Social History Smoking and tobacco status: current some day smoker e-cigarettes E-Cigarette Details: vaporizer device Alcohol intake: never Adopted: Yes Current occupational status: employed History of recent travel: No Sexually active: Yes Female Reproductive History: Date of last menstrual period: 11/09/21 Physical Exam Const: COMMON NORMALS: no acute distress, patient oriented x3, no limitations, alert (Mild anxiety) and well nourished EXAM LIMITATIONS: altered mental status GENERAL APPEARANCE: cooperative HENMT: COMMON NORMALS: normocephalic and atraumatic HEAD & SCALP: normocephalic and atraumatic FACE & SINUS: normal facial exam Eye: COMMON NORMALS: EOMs intact bilaterally Neck/C-Spine: COMMON NORMALS: full ROM, no lymphadenopathy, supple, no meningeal signs and no JVD GENERAL: Yes normal visual inspection Lymph: LYMPHATIC: no lymphadenopathy noted Chest: COMMONS NORMALS: normal inspection of the chest and normal palpation of entire chest wall CHEST: No Ecchymosis present and No rash Resp: COMMON NORMALS: normal respiratory effort, No retractions and clear to auscultation bilaterally EFFORT & INSPECTION: No respiratory distress AUSCULTATION: clear to auscultation bilaterally Cardio: COMMON NORMALS: no JVD, regular rhythm and Peripheral pulses 2+ throughout JUGULAR VENOUS DISTENTION: no JVD RATE: tachycardic RHYTHM: regular rhythm PERIPHERAL PULSES: Peripheral pulses 2+ throughout GI: COMMON NORMALS: Normal to inspection, nondistended, normoactive bowel sounds present and non-tender : COMMON NORMALS: Yes no CVA tenderness BLADDER/KIDNEY EXAM: Yes no CVA tenderness Back/Pelvis: COMMON NORMALS: no CVA tenderness Extremity: COMMON NORMALS: normal to inspection, full ROM and capillary refill normal Neuro: COMMON NORMALS: patient oriented x3, CN's II-XII intact bilaterally, no focal motor deficits and no sensory deficits noted SENSORIUM/ORIENTATION: Yes alert (Mild anxiety) MENINGEAL SIGNS: Yes no meningeal signs Psych: COMMON NORMALS: mental status grossly normal, Normal thought process present, cooperative, normal affect and speech normal (Mild anxiety) SPEECH: Yes normal speech (Mild anxiety) THOUGHT PROCESS: Normal thought process present Skin: COMMON NORMALS: no rashes or lesions noted and no wounds GENERAL SKIN EXAM: no rashes or lesions noted Course Vital Signs: Vital signs: Vital Signs Temperature 98.3 F 11/24/21 21:09 Pulse Rate 121 H 11/24/21 21:09 Respiratory Rate 18 11/24/21 21:09 Blood Pressure 115/73 11/24/21 21:09 Pulse Oximetry 97 11/24/21 21:09 MDM - Chest Pain MDM Narrative: Medical decision making narrative: Symptoms likely due to high steroid dose. Patient presently being treated for optic neuritis. 2156: hr 94 nsr; bp 116/70; o2 sat 98%ra Leukocytosis is due to her high prednisone dose of 140 mg daily. Have discussed with the patient she will decrease back to the originally prescribed 80 mg/day dose for her optic neuritis since she is not tolerating the higher 140 mg daily dose. She states that 140 mg daily dose was increased due to her joint pain on the last visit. She already is on antacid medication and Carafate. We will add low-dose beta-ellis to help control her heart rate. Lab Data: Attestation: I reviewed the patient's lab results. Labs: Lab Results 11/24/21 11/24/21 11/24/21 21:50 21:50 21:50 WBC 21.3 10^3/uL H 10 ^3/uL (4.0-10.0) RBC 4.59 10^6/uL 10^6 /uL (4.1-5.3) Hgb 13.6 g/dL g/dL (11.5-15.3) Hct 41.6 % % (37.0-47.0) MCV 90.6 fl fl (81-99) MCH 29.6 pg pg (28.0-34.0) MCHC 32.7 g/dL g/dL (30.0-36.0) RDW 12.7 % % (12.1-15.1) Plt Count 281 10^3/cmm 10^3 /cmm (130-400) MPV 9.2 fL fL (7.4-10.4) Neut % (Auto) 87.1 % % Lymph % (Auto) 5.3 % % [place] % (Auto) 4.1 % % Eos % (Auto) 0.0 % % Baso % (Auto) 0.3 % % Neut # (Auto) 18.54 10^3/uL H 1 0^3/uL (1.8-7.7) Lymph # (Auto) 1.1 10^3/uL 10^3/ uL (0.8-4.8) [place] # (Auto) 0.9 10^3/uL 10^3/ uL (0.2-0.9) Eos # (Auto) 0.0 10^3/uL 10^3/ uL (0.0-0.8) Baso # (Auto) 0.1 10^3/uL 10^3/ uL (0.0-0.1) Nucleated RBC % (a uto) 0 % % Nucleated RBCs # 0.0 /100WBC /100W BC Sodium 138 mmol/L mmol/L (136-145) Potassium 4.5 mmol/L mmol/L (3.5-5.1) Chloride 101 mmol/L mmol/L (98-107) Carbon Dioxide 25 mmol/L mmol/L (22-29) Anion Gap 16.5 (5-19) BUN 15 mg/dL mg/dL (6-20) Creatinine 0.5 mg/dL mg/dL (0.5-0.9) GFR Calculation 154.3 mL/min H mL /min (90-130) Glucose 121 mg/dL H mg/dL (65-115) Calculated Osmolal ity 288 mOsm/kg mOsm/ kg (285-295) Calcium 8.4 mg/dL L mg/dL (8.5-10.5) Magnesium 2.3 mg/dL mg/dL (1.7-2.3) Troponin T Baselin e 6 ng/L ng/L (0-10) EKG Data^: EKG 1: Attestation: I personally reviewed and interpreted this EKG as follows: EKG interpretation date: 11/24/21 EKG interpretation time: 21:10 Interpretation: Sinus tachycardia with heart rate of 120. Normal FL interval, normal QRS, normal ST segment. Normal QT interval. Normal axis. Discharge Plan Discharge Prescriptions: No Action ibuprofen 600 mg tablet 600 mg PO Q8H PRN (Reason: Pain) RF: 0 colestipol [Colestid] 1 gram tablet 1 gm PO DAILY PRN (Reason: Diarrhea) RF: 0 fluoxetine 20 mg capsule 20 mg PO DAILY@2200 RF: 0 Zofran 4 mg Tablet 4 mg PO Q6H PRN (Reason: Nausea) RF: 0 Microgestin 11/28 (21) 1-20 mg-mcg tablet 1 tab PO DAILY@2200 RF: 0 prednisone 20 mg tablet 20 mg PO BID 7 Days Qty: 25 RF: 0 Coding Level of Care Code ED [employer] Furn[employer] Operator for Young Fwd Exam Comprehensive
[2021-11-24] MEDS: sodium chloride 0.9% 1,000 ML 999 ML IV (21:54)
[2021-11-24] MEDS: metoprolol tartrate 1 mg/1 mL SDV 5 mL 2.5 MG IVP (21:54)
[2021-11-24 21:59] LABS: Basophils # 0.1 10^3/uL (0.0-0.1); Basophils % 0.3 %; Hematocrit 41.6 % (37.0-47.0); Hemoglobin 13.6 g/dL (11.5-15.3); Lymphocytes # 1.1 10^3/uL (0.8-4.8); Lymphocytes % 5.3 %; Mean Corpuscular HGB Conc 32.7 g/dL (30.0-36.0); Mean Corpuscular Hemoglobin 29.6 pg (28.0-34.0); Mean Corpuscular Volume 90.6 fl (81-99); Mean Platelet Volume 9.2 fL (7.4-10.4); Monocytes # 0.9 10^3/uL (0.2-0.9); Monocytes % 4.1 %; Neutrophils # 18.54 10^3/uL (1.8-7.7); Neutrophils % 87.1 %; Nucleated Red Blood Cells % 0 %; Platelet Count 281 10^3/cmm (130-400); Red Blood Count 4.59 10^6/uL (4.1-5.3); Red Cell Distribution Width 12.7 % (12.1-15.1); White Blood Count 21.3 10^3/uL (4.0-10.0)
[2021-11-24 22:22] LABS: Anion Gap 16.5 (5-19); Blood Urea Nitrogen 15 mg/dL (6-20); Calcium 8.4 mg/dL (8.5-10.5); Carbon Dioxide 25 mmol/L (22-29); Chloride 101 mmol/L (98-107); Glomerular Filtration Rate 154.3 mL/min (90-130); Glucose 121 mg/dL (65-115); Magnesium 2.3 mg/dL (1.7-2.3); Osmolality Calculated 288 mOsm/kg (285-295); Potassium 4.5 mmol/L (3.5-5.1); Sodium 138 mmol/L (136-145); Troponin(5th) Baseline 6 ng/L (0-10)
[2021-11-24] MEDS: ondansetron 2 mg/ML SDV 2 mL 4 MG IVP (22:50)
[2021-11-24] MEDS: lidocaine 2% viscous 15 ML, aluminum-mag hydrox-simethicon 30 ML, sucralfate oral liq 1 GM PO (22:50)
[2021-11-24 22:51] VITALS: RESP 20; O2SAT 97
[2021-11-24] MEDS: morphine 4 mg/mL SDV 1 mL IVP (22:51)
[2021-11-24 22:55] VITALS: BP 124/73; PULSE 90; RESP 22; O2SAT 98
[2021-11-24 23:08] VITALS: BP 124/73; PULSE 90; RESP 22; O2SAT 98
== END 2021-11-24 23:00 | disposition home or self-care (01) ==
PROVIDERS: Emergency Provider Family Medicine; PCP Internal Medicine
DX: R07.9 Chest pain, unspecified (principal); T38.0X5A Adverse effect of glucocorticoids and synthetic analogues, initial encounter; R00.0 Tachycardia, unspecified; H46.9 Unspecified optic neuritis; F17.290 Nicotine dependence, other tobacco product, uncomplicated; Z79.52 Long term (current) use of systemic steroids
CPT/HCPCS: 80048; 83735; 84484; 85025; 93005; 96361; 96374; 96375; 99284; J2270; J2405; J3490; J7030